=== PATIENT | male | born 1965 | race Caucasian/White ===

== ENCOUNTER 2017-02-08 09:56 | Emergency (ER) | payer MEDICARE, MEDICAID ==
[2017-02-08 10:08] VITALS: BP 144/83
--- NOTE | 2017-02-08 10:58 | UC ---
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[facility] complaint of rash that was noticed last night rash on abdomen that is not itchy used calamine lotion denies fever and chills no new exposures to new foods medicines,detergents or creams - History of Current Complaint Chief Complaint: UCSkin Stated Complaint: SKIN CONCERN Time Seen by Provider: 02/08/17 10:52 Hx Obtained From: Patient - Allergy/Home Medications Allergies/Adverse Reactions: Allergies Allergy/AdvReac Type Severity Reaction Status Date / Time No Known Allergies Allergy Verified 02/08/17 10:07 PMH/Surg Hx/FS Hx/Imm Hx Previously Healthy: Yes Endocrine History: Dyslipidemia Cardiovascular History: Hypertension Psychological History: Depression, Bipolar Disorder, Schizophrenia - Surgical History Surgical History: None - Social History Alcohol Use: None Substance Use Type: None Smoking Status (MU): Never Smoked Tobacco Review of Systems Constitutional: Negative Skin: Rash Eyes: Negative ENT: Negative Respiratory: Negative Cardiovascular: Negative Gastrointestinal: Negative Genitourinary: Negative Motor: Negative Neurovascular: Negative Musculoskeletal: Negative Neurological: Negative Psychological: Negative All Other Systems Reviewed And Are Negative: Yes Physical Exam Triage Information Reviewed: Yes Appearance: Well-Appearing, Well-Nourished, Obese Vital Signs: Initial Vital Signs Temp 98.1 F 02/08/17 10:03 Pulse 76 02/08/17 10:03 Resp 16 02/08/17 10:03 BP 144/83 02/08/17 10:03 Pulse Ox 100 02/08/17 10:03 Vital Signs Reviewed: Yes Eyes: Positive: Conjunctiva Clear ENT: Positive: Pharynx normal, TMs normal Neck: Positive: No Lymphadenopathy Respiratory: Positive: Lungs clear, Normal breath sounds, No respiratory distress, No accessory muscle use Cardiovascular: Positive: RRR, No Murmur, Pulses Normal, Brisk Capillary Refill Abdomen Description: Positive: Nontender, Soft, Distended Bowel Sounds: Positive: Present Musculoskeletal: Positive: No Edema Neurological Exam: Normal Psychological Exam: Normal Skin: Positive: Other - abdomen- three 3x3cm areas of erythema with raised edges and clearish centers Course/Dx - Differential Dx - Multi-Symptom Provider Diagnoses: tinea. elevated blood pressure Discharge - Discharge Plan Condition: Stable Disposition: HOME Prescriptions: Clotrimazole 1% CREAM* [Clotrimazole 1%*] 1 applic TOPICAL BID #1 tube Patient Education Materials: Tinea Corporis (ED) Referrals: Destini Armenta PA [Primary Care Provider] - Additional Instructions: Please start antifungal cream as directed Increase fluids and rest Please review your discharge instructions. If your symptoms do not improve please call your primary care provider or return to urgent care. Your blood pressure is elevated. Please contact your primary care provider within 1 -4 weeks for further evaluation.
== END 2017-02-08 11:14 | disposition home or self-care (01) ==
LOC: UCCORT 09:56
DX: B35.9 Dermatophytosis, unspecified (principal)
CPT/HCPCS: 99212; G0463

== ENCOUNTER 2017-09-12 16:38 | Emergency (ER) | payer MEDICARE, MEDICAID ==
[2017-09-12 17:36] VITALS: BP 199/65
--- NOTE | 2017-09-12 17:54 | UC ---
Skin Complaint HPI - HPI Summary HPI Summary: This is a 51 yo developmentally disabled male who presents with c/o rash that started last night. It is across his abdomen. No itching or pain. No fever. He had a similar rash last winter that improved with a steroid cream. Patient spends most of the day washing dishes and his shirt is soaked. He applies lotion twice daily. - History of Current Complaint Chief Complaint: UCRash Stated Complaint: RASH Pain Intensity: 0 - Allergy/Home Medications Allergies/Adverse Reactions: Allergies Allergy/AdvReac Type Severity Reaction Status Date / Time No Known Allergies Allergy Verified 09/12/17 17:36 Review of Systems Constitutional: Negative Skin: Rash Eyes: Negative ENT: Negative Respiratory: Negative Cardiovascular: Negative Gastrointestinal: Negative Genitourinary: Negative Motor: Negative Neurovascular: Negative Musculoskeletal: Negative Neurological: Negative Psychological: Negative Is Patient Immunocompromised?: No All Other Systems Reviewed And Are Negative: Yes PMH/Surg Hx/FS Hx/Imm Hx Previously Healthy: No - developmental disability Endocrine History: Thyroid Disease - Surgical History Surgical History: None - Family History Known Family History: Positive: None - Social History Alcohol Use: None Substance Use Type: None Smoking Status (MU): Never Smoked Tobacco Physical Exam Triage Information Reviewed: Yes Appearance: Well-Appearing Vital Signs: Initial Vital Signs Temp 97.9 F 09/12/17 17:31 Pulse 76 09/12/17 17:31 Resp 16 09/12/17 17:31 BP 199/65 09/12/17 17:31 Pulse Ox 99 09/12/17 17:31 Vital Signs Reviewed: Yes ENT Exam: Normal Dental Exam: Normal Neck exam: Normal Respiratory Exam: Normal Respiratory: Positive: Chest non-tender, Lungs clear Cardiovascular Exam: Normal Cardiovascular: Positive: RRR, No Murmur Abdominal Exam: Normal Abdomen Description: Positive: Nontender Musculoskeletal Exam: Normal Neurological Exam: Normal Neurological: Positive: Alert Skin: Positive: Other - erythematous rash across abdomen, no excoriation Course/Dx - Course Course Of Treatment: This is a 51 yo male who presents with a rash which appears to be a contact dermatitis. Recommend use of topical corticosteroid. - Differential Diagnoses - Skin Complaint Differential Diagnoses: Contact Dermatitis, Eczema - Diagnoses Provider Diagnoses: 1. Contact dermatitis. 2. Elevated blood pressure reading - noted to be inaccurate by nursing after patient left, no h/o HTN or symptoms Discharge - Discharge Plan Condition: Stable Disposition: HOME Prescriptions: Triamcinolone 0.5% CREAM(NF) [Triamcinolone 0.5% CREAM*] 1 applic TOPICAL BID # 1 tube Patient Education Materials: Contact Dermatitis (ED) Referrals: Destini Armenta PA [Primary Care Provider] - If Needed Additional Instructions: Instructions: 1. Apply steroid cream twice daily 2. Cont lotion application and/or ointment 3. Discontinue steroid cream when rash resolves
== END 2017-09-12 17:52 | disposition home or self-care (01) ==
LOC: UCCORT 16:38
DX: L25.9 Unspecified contact dermatitis, unspecified cause (principal); R03.0 Elevated blood-pressure reading, without diagnosis of hypertension; F81.9 Developmental disorder of scholastic skills, unspecified; E07.9 Disorder of thyroid, unspecified
CPT/HCPCS: 99212; G0463

== ENCOUNTER 2017-11-07 16:13 | Emergency (ER) | payer MEDICARE, MEDICAID ==
[2017-11-07 17:48] VITALS: BP 143/74
--- NOTE | 2017-11-07 18:10 | UC ---
Skin Complaint HPI - HPI Summary HPI Summary: 52 year old male with skin concern. patient has a boil appearing sore on the back of his neck. has been there for a couple of days. he is here with staff from care home. no fever. no discharge. 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 Onset/Duration: Gradual Onset Skin Exposure Onset/Duration: Days Ago Timing: Constant Pain Intensity: 0 Aggravating Factor(s): Nothing Alleviating Factor(s): Nothing Associated Signs & Symptoms: Positive: Negative - Allergy/Home Medications Allergies/Adverse Reactions: Allergies Allergy/AdvReac Type Severity Reaction Status Date / Time No Known Allergies Allergy Verified 11/07/17 17:49 Home Medications: Home Medications Acetaminophen TAB* [Tylenol TAB*] 650 mg PO Q4H PRN 11/07/17 [History Confirmed 11/07/17] Cholecalciferol TAB* [Vitamin D TAB*] 1,000 unit PO DAILY 11/07/17 [History Confirmed 11/07/17] guaiFENesin [Guaifenesin] 400 mg PO Q4H 11/07/17 [History Confirmed 11/07/17] Review of Systems Skin: Other - boil All Other Systems Reviewed And Are Negative: Yes PMH/Surg Hx/FS Hx/Imm Hx Previously Healthy: Yes Endocrine History: Dyslipidemia Psychological History: Bipolar Disorder - Surgical History Surgical History: None - Family History Known Family History: Positive: None - Social History Occupation: Unemployed Alcohol Use: None Substance Use Type: None Smoking Status (MU): Never Smoked Tobacco Physical Exam Triage Information Reviewed: Yes Appearance: Well-Appearing, No Pain Distress, Well-Nourished Vital Signs: Initial Vital Signs Temp 99.1 F 11/07/17 17:44 Pulse 68 11/07/17 17:44 Resp 12 11/07/17 17:44 BP 143/74 11/07/17 17:44 Pulse Ox 97 11/07/17 17:44 Vital Signs Reviewed: Yes Eyes: Positive: Conjunctiva Clear ENT: Positive: Hearing grossly normal Neck: Positive: Supple, Nontender Respiratory: Positive: No respiratory distress Cardiovascular: Positive: RRR Musculoskeletal Exam: Normal Neurological Exam: Normal Psychological Exam: Normal Skin: Positive: Other - round raised red abscess 5x5 mm and with fluctuance present. no streaking. mild tenderness. superficial. Course/Dx - Course Course Of Treatment: cleaned with elcohol. consent and time out done. [id number] g needle in 2 times very superficually approx 1 mm. expressed moderate amount of purulent discharge. cultured it. start doxy at this time. RTO if any concerns covered with band aid patient tolerated procecure well and scant/minimal blood loss - Differential Diagnoses - Skin Complaint Differential Diagnoses: Abscess, Cellulitis - Diagnoses Provider Diagnoses: abscess on posterior neck Discharge - Sign-Out/Discharge Documenting (check all that apply): Discharge - Discharge Plan Condition: Good Disposition: HOME Prescriptions: Doxycycline Hyclate 100 mg PO BID 10 Days #20 tablet Patient Education Materials: Abscess (ED) Referrals: Destini Armenta PA [Primary Care Provider] - 4 Days - Billing Disposition and Condition Condition: GOOD Disposition: HOME Images Head: 1 - abscess
--- NOTE | 2017-11-10 07:17 | UC ---
- Progress Note Progress Note: MRSA neg 2+ staph aureus Pt on doxy, sensitive no change martij 11/10/17 Discharge - Sign-Out/Discharge Documenting (check all that apply): Discharge - Discharge Plan Condition: Good Disposition: HOME Prescriptions: Doxycycline Hyclate 100 mg PO BID 10 Days #20 tablet Patient Education Materials: Abscess (ED) Referrals: Destini Armenta PA [Primary Care Provider] - 4 Days - Billing Disposition and Condition Condition: GOOD Disposition: HOME
== END 2017-11-07 18:37 | disposition home or self-care (01) ==
LOC: UCCORT 16:13
DX: L02.11 Cutaneous abscess of neck (principal)
CPT/HCPCS: 10060; 87070; 87077; 87186; 87205; 87640; 87641; 99212; G0463

== ENCOUNTER 2019-02-28 11:49 | Emergency (ER) | payer MEDICARE, MEDICAID ==
--- OUTSIDE RECORDS SUMMARY | 2019-02-28 12:04 | XMS REPORT | Continuity of Care Document ---
:1965 External Reference #:[id number] Author Name Marilee Soto Care Team Providers Name Role Phone Dwight Parker MD Primary Care Physician Unavailable Payers Date Identification Numbers Payment Provider Subscriber Effective: 1992 Policy Number: [id number] Medicare Kavya Byrd Group Name: Medicare [address] PayID: [id number] [place] [phone] Policy Number: [id number] Medicaid Kavya Byrd Group Name: 2 1 [address] PayID: [id number] [place] [address] Problems Active Problems Provider Date Umbilical hernia Onset: 08/15/2018 Contact dermatitis Onset: 08/15/2018 Anxiety state Onset: 06/27/2011 Hyperlipidemia Onset: 06/27/2011 Hypothyroidism Onset: 06/27/2011 Mixed conductive AND sensorineural hearing loss Onset: 06/27/2011 Mental retardation Onset: 06/27/2011 Vitamin D deficiency Onset: 06/27/2011 Bipolar I disorder Onset: 06/27/2011 Resolved Problems Disorder of sebaceous gland Onset: 06/27/2011 Resolved: 09/23/2017 Chronic hypotension Onset: 06/27/2011 Resolved: 10/17/2018 Family History Date Family Member(s) Observation Comments Father due to [place] () Social History Type Date Description Comments Sex Unknown Marital Status Single Lives With Adult family home [facility] [employer] Ambidextrous ETOH Use Never used alcohol Tobacco Use Start: Unknown Patient has never smoked Recreational Drug Use Never Used Drugs Smoking Status Reviewed: 02/04/19 Patient has never smoked Exercise Type/Frequency Exercises regularly Exercise Type/Frequency Walks 3 times a week Allergies, Adverse Reactions, Alerts Description No Known Drug Allergies Medications Active Medications SIG Qnty Indications Ordering Date Provider Aquaphor elizabeth Quintanilla 09/18/2018 Ointment MD Keith Selsun Blue Dry Scalp once a day 1units Dwight 09/18/2018 MD Keith 1% Shampoo Multi For Him 50+ once a day Dwight 10/13/2015 MD Keith Tablets Levothyroxine Sodium take 1 tablet by 30tabs E03.9 Dwight 10/11/2014 mouth every day MD Keith 112mcg Tablets Pravastatin Sodium take 1 tablet by 90tabs Dwight 10/16/2011 20mg mouth every evening MD Keith Tablets Abilify 1 po qd 90tabs Dwight 08/14/2011 10mg Tablets MD Keith Cymbalta 2 by mouth every 60caps Dwight 08/14/[address] morning MD Keith Part Lithobid 1 po tid Dwight 08/14/2011 300mg Tablets MD Keith ER Prevident 5000 Dwight 08/14/2011 Booster MD Keith 1.1% Paste Acetaminophen 2 tablets by mouth 60tabs Dwight 08/14/2011 325mg prn MD Keith Tablets Guaifenesin 10 milliliters by 473ml Dwight 08/14/2011 100mg/5ML mouth every 4 hours MD Keith Liquid as needed for cough Antacid Liquid 10 milliliters by Dwight 08/14/2011 mouth q 4 hours as MD Keith [phone] needed Suspension Triple Antibiotic as needed Dwight 08/14/2011 MD Keith 3.5-400-5000 Ointment Vitamin D-400 1 by mouth every 30tabs Dwight 08/14/2011 400Unit day MD Keith Tablets Doxycycline Hyclate TK 1 T PO bid Unknown 100mg Tablets History Medications Amoxicillin 1 by mouth twice a 20tabs H66.93 Dwight 01/21/2019 - 875mg day MD Keith 02/04/2019 Tablets Erythromycin apply half inch 3.500gm H10.021 Dwight 01/21/2019 - 5mg/GM ribbon to eyes MD Keith 02/04/2019 Ointment twice a day for 5 days Suprep Bowel Prep Take according to 354ml Uriel Salazar 10/22/2018 - Kit the instructions MD Edouard 02/04/2019 you received the 17.5-3.13-1.6GM/177 afternoon before ML Solution and morning of your procedure. Clotrimazole apply to affected 15units Dwight 12/18/2017 - 1% area twice a day MD Keith 05/15/2018 Cream for 10 days Betamethasone apply to afected 15units Dwight 12/18/2017 - Dipropionate amanda twice a day MD Keith 08/15/2018 0.05% for 5 days Cream Lotrisone apply to affected 30units L30.9 Dwight 12/16/2017 - 1-0.05% area twice a day MD Keith 01/01/2018 Cream for 5-7 days Ciclopirox Olamine apply to affected 30units B35.4 Dwight 02/22/2017 - area twice a day MD Keith 02/22/2017 0.77% Cream to pannus for 7 days Clotrimazole/Betame apply twice a day 30units B35.4 Dwight 02/22/2017 - thasone to affected for MD Keith 03/06/2017 Dipropionate one week 1-0.05% Cream Terbinafine HCL one every day 10tabs B35.4 Dwight 02/22/2017 - MD Keith 04/25/2017 250mg Tablets Ketoconazole apply to affected 60units B35.6 Dwight 06/28/2015 - 2% area twice a day MD Keith 10/13/2015 Cream for one week,then use as necessary Levothyroxine 1 by mouth every 30tabs 244.9 Dwight 09/28/2014 - Sodium soha Parker MD 12/13/2014 100mcg Tablets Levoxyl 1 by mouth every 30tabs Dwight 01/14/2013 - 88mcg soha Parker MD 09/28/2014 Tablets Pravachol one qd 30tabs Dwight 10/16/2011 - 20mg MD Keith 12/04/2011 Tablets Levoxyl ... 1 tablet qd 30tabs Dwight 08/14/2011 - 75mcg MD Keith 01/14/2013 Tablets Nizoral use as directed 4units Dwight 08/14/2011 - 2% Shampoo MD Keith 10/06/2012 Clotrimazole Aminata Ext Aa bid Unknown - 1% 02/22/2017 Cream Immunizations CPT Code Status Date Vaccine Lot # [id number] Given 05/15/2018 Influenza Virus Vaccine, Quadrivalent, Split, Preservative Free 98776 Given 12/16/2017 Tdap - Tetanus/Diptheria/Acellular Pertussis 26927 Given 05/20/2014 Influenza Virus 3Yrs & Over 39680 Given 06/11/2013 Influenza Virus 3Yrs & Over 30646 Given 05/23/2012 Influenza Virus 3Yrs & Over 56870 Given 05/30/2010 Influenza Virus 3Yrs & Over 33455 Given 05/17/2009 Influenza Virus 3Yrs & Over 39163 Given 05/11/2008 Influenza Virus 3Yrs & Over 41690 Given 03/22/2008 Tdap - Tetanus/Diptheria/Acellular Pertussis 00427 Given 06/02/2007 Influenza Virus 3Yrs & Over 38272 Given 07/24/2005 Influenza Virus 3Yrs & Over 52966 Given 04/24/2004 Hepatitis B Dinah Adoles For Intramuscular Use 81916 Given 11/03/2003 Hep B Pediatric/Adolescent 66051 Given 10/05/2003 Hepatitis B Dinah Adoles For Intramuscular Use 91760 Given 10/05/2003 Hepatitis B Dinah Adoles For Intramuscular Use 15799 Given 07/14/2003 Influenza Virus 3Yrs & Over 19447 Given 05/27/2002 Influenza Virus 3Yrs & Over 75850 Given 06/05/2000 Influenza Virus 3Yrs & Over 53041 Given 03/15/1999 Tetanus And Diptheria (Td) For Adult Use Preservative Free 70816 Given 09/18/1994 Flu Vaccine 84455 Given 09/27/1992 Flu Vaccine Vital Signs Date Vital Result Comment 02/25/2019 8:11am Weight 183.06 lb BP Systolic Sitting 110 mmHg BP Diastolic Sitting 50 mmHg 02/04/2019 9:25am Weight 180.38 lb BP Systolic Sitting 108 mmHg BP Diastolic Sitting 70 mmHg 01/21/2019 11:16am Weight 178.31 lb 10/21/2018 9:08am Height 65.25 inches 5'5.25" Weight 240.00 lb Heart Rate 80 /min BP Systolic Sitting 102 mmHg large adult cuff right arm BP Diastolic Sitting 62 mmHg large adult cuff right arm Respiratory Rate 20 /min O2 % BldC Oximetry 96 % at rest on room air BMI (Body Mass Index) 39.6 kg/m2 10/17/2018 11:02am Height 65.25 inches 5'5.25" Weight 181.00 lb Heart Rate 82 /min BP Systolic 132 mmHg BP Diastolic 74 mmHg Respiratory Rate 16 /min O2 % BldC Oximetry 98 % BMI (Body Mass Index) 29.9 kg/m2 09/18/2018 11:07am Weight 183.00 lb BP Systolic 134 mmHg BP Diastolic 76 mmHg 08/15/2018 10:21am Weight 182.00 lb BP Systolic 126 mmHg BP Diastolic 76 mmHg 05/15/2018 10:08am Weight 179.00 lb 12/31/2017 3:26pm Weight 183.00 lb 12/16/2017 4:09pm Weight 184.00 lb BP Systolic 124 mmHg BP Diastolic 70 mmHg 11/13/2017 3:40pm Weight 192.00 lb 10/16/2017 3:31pm Height 65.6 inches Weight 189.00 lb Heart Rate 70 /min BP Systolic 120 mmHg BP Diastolic 70 mmHg Respiratory Rate 12 /min Body Temperature 98.8 F BMI (Body Mass Index) 30.9 kg/m2 2017 3:25pm Height 65 inches Weight 196.00 lb BP Systolic 124 mmHg BP Diastolic 74 mmHg BMI (Body Mass Index) 32.6 kg/m2 07/24/2017 3:00pm Weight 185.00 lb BP Systolic 118 mmHg BP Diastolic 60 mmHg 04/24/2017 3:03pm Weight 186.00 lb BP Systolic 112 mmHg BP Diastolic 60 mmHg 03/06/2017 9:28am Weight 190.00 lb BP Systolic 110 mmHg BP Diastolic 70 mmHg 02/22/2017 9:58am Weight 189.00 lb BP Systolic 108 mmHg BP Diastolic 60 mmHg 01/22/2017 9:01am Weight 188.00 lb 10/15/2016 3:38pm Height 65.25 inches Weight 178.00 lb Heart Rate 84 /min BP Systolic 108 mmHg BP Diastolic 62 mmHg Respiratory Rate 16 /min Body Temperature 9.4 F BMI (Body Mass Index) 29.4 kg/m2 10/10/2016 2:57pm Weight 180.00 lb BP Systolic 126 mmHg BP Diastolic 76 mmHg 08/29/2016 4:02pm Weight 183.00 lb BP Systolic 128 mmHg BP Diastolic 78 mmHg 07/19/2016 2:57pm Weight 187.00 lb 06/19/2016 2:55pm Weight 189.00 lb BP Systolic 122 mmHg BP Diastolic 80 mmHg 05/03/2016 4:00pm Weight 183.00 lb BP Systolic 120 mmHg BP Diastolic 70 mmHg 04/03/2016 1:19pm Weight 183.00 lb BP Systolic 118 mmHg BP Diastolic 70 mmHg 02/16/2016 3:09pm Weight 182.00 lb BP Systolic 110 mmHg BP Diastolic 78 mmHg 01/12/2016 3:21pm Weight 181.00 lb 10/13/2015 3:28pm Height 65.6 inches Weight 180.00 lb Heart Rate 70 /min BP Systolic 124 mmHg BP Diastolic 70 mmHg Respiratory Rate 12 /min Body Temperature 98.8 F BMI (Body Mass Index) 29.4 kg/m2 09/15/2015 3:32pm Weight 187.00 lb BP Systolic 120 mmHg BP Diastolic 76 mmHg 08/15/2015 3:41pm Weight 186.00 lb BP Systolic 118 mmHg BP Diastolic 70 mmHg 07/14/2015 3:10pm Weight 188.00 lb BP Systolic 118 mmHg BP Diastolic 74 mmHg 06/28/2015 9:34am Weight 188.00 lb BP Systolic 112 mmHg BP Diastolic 70 mmHg 06/15/2015 3:17pm Weight 188.00 lb BP Systolic 118 mmHg BP Diastolic 70 mmHg 03/15/2015 8:55am Weight 180.00 lb 12/13/2014 3:00pm Weight 198.00 lb BP Systolic 128 mmHg BP Diastolic 78 mmHg 10/11/2014 3:37pm Height 65 inches Weight 200.00 lb Heart Rate 80 /min BP Systolic 132 mmHg BP Diastolic 80 mmHg Respiratory Rate 14 /min Body Temperature 98.8 F BMI (Body Mass Index) 33.3 kg/m2 09/28/2014 4:24pm Weight 195.00 lb BP Systolic 130 mmHg BP Diastolic 80 mmHg 08/19/2014 3:21pm Weight 193.00 lb BP Systolic 140 mmHg BP Diastolic 90 mmHg 08/19/2014 5:11pm BP Systolic 130 mmHg BP Diastolic 80 mmHg 05/20/2014 3:36pm Weight 178.00 lb BP Systolic 124 mmHg BP Diastolic 70 mmHg 04/07/2014 2:55pm Weight 180.00 lb BP Systolic 124 mmHg BP Diastolic 74 mmHg 01/05/2014 3:23pm Weight 175.00 lb BP Systolic 120 mmHg BP Diastolic 70 mmHg 10/07/2013 3:47pm Height 66 inches Weight 187.00 lb Heart Rate 70 /min BP Systolic 126 mmHg BP Diastolic 78 mmHg Respiratory Rate 14 /min Body Temperature 98.6 F BMI (Body Mass Index) 30.2 kg/m2 08/24/2013 3:47pm Weight 187.00 lb BP Systolic 126 mmHg BP Diastolic 70 mmHg 08/13/2013 3:35pm Weight 187.00 lb BP Systolic 126 mmHg BP Diastolic 78 mmHg 06/11/2013 2:38pm Weight 185.00 lb BP Systolic 118 mmHg BP Diastolic 78 mmHg 03/11/2013 3:41pm Weight 178.00 lb BP Systolic 126 mmHg BP Diastolic 80 mmHg 01/14/2013 3:07pm Weight 174.00 lb BP Systolic 140 mmHg BP Diastolic 80 mmHg 10/06/2012 3:56pm Height 64.6 inches Weight 172.00 lb Heart Rate 70 /min BP Systolic 110 mmHg BP Diastolic 68 mmHg Respiratory Rate 14 /min Body Temperature 98.8 F BMI (Body Mass Index) 29.0 kg/m2 07/15/2012 3:07pm Weight 182.00 lb BP Systolic 110 mmHg BP Diastolic 70 mmHg 06/17/2012 3:07pm Weight 180.00 lb BP Systolic 100 mmHg BP Diastolic 58 mmHg 04/08/2012 3:05pm Height 64 inches Weight 179.00 lb BP Systolic 108 mmHg BP Diastolic 74 mmHg BMI (Body Mass Index) 30.7 kg/m2 01/08/2012 3:44pm Height 64 inches Weight 173.00 lb BP Systolic 100 mmHg BP Diastolic 50 mmHg BMI (Body Mass Index) 29.7 kg/m2 12/04/2011 3:26pm Weight 178.00 lb BP Systolic 100 mmHg BP Diastolic 60 mmHg 10/16/2011 3:14pm Weight 176.00 lb BP Systolic 100 mmHg BP Diastolic 70 mmHg 10/03/2011 3:50pm Height 64 inches Weight 173.00 lb Heart Rate 76 /min BP Systolic 110 mmHg BP Diastolic 78 mmHg Respiratory Rate 12 /min Body Temperature 96.8 F BMI (Body Mass Index) 29.7 kg/m2 08/14/2011 3:00pm Height 64 inches Weight 176.00 lb BP Systolic 120 mmHg BP Diastolic 80 mmHg BMI (Body Mass Index) 30.2 kg/m2 Results Test Date Facility Test Result H/L Range Note Laboratory test 11/11/2018 [facility] Surgical SEE RESULT 1 , [address] [place] [address] [phone] Laboratory test 07/23/2018 [facility] Import Thyroid Stim 2.96 uIU/mL 0.3- 4.2 3 finding Hormone Basic Metabolic 07/23/2018 N2N/CCD Import Anion Gap 6 mEq/L Low 8-16 Panel BUN 14 mg/dL 7-18 BUN/Creat 15.5 ratio Calcium 8.5 mg/dL 8.5-10.1 Carbon Dioxide 26 mmol/L 21-32 Chloride 108 mmol/L High 98-107 Creatinine 0.9 mg/dL 0.6-1.3 Glom Filtration Rate, Estimate >60 mL/min Glucose 91 mg/dL 74-106 If >60 mL/min 4 Potassium 4.0 mmol/L 3.5-5.1 Sodium 140 mmol/L 136-145 CBC Auto Diff 07/23/2018 N2N/CCD Import Bas% 0.6 % 0-1.1 Baso # 0.03 K/uL 0-0.1 Eo% 3.1 % 0-6.6 Eos # 0.16 K/uL 0-0.5 Hematocrit 42.8 % 38-48 Hemoglobin 14.2 gm/dL 12.8-17 Lymph # 1.14 K/uL 1-4 Lymph % 22.0 % 20-42 Mean Cell Volume 96.6 fl High 80-96 Mean Corpuscular HGB 32.1 pg 27-33 Mean Corpuscular HGB Conc 33.2 g/dL 31.7-36 Mean Platelet Volume 11.1 fL High 6.6-10.6 [place] # 0.66 K/uL 0-0.8 [place] % 12.7 % High 0-10 Neut# 3.20 K/uL 1.8-7 Neut% 61.6 % 33-73 Platelet Count 200 K/uL 155-360 Red Blood Count 4.43 M/uL 4.2-5.8 Red Cell Distri Width %CV 11.8 % 11.6-15.8 Red Cell Distri Width SD 40.7 fl 36-51 White Blood Count 5.2 K/uL 3.4-10.5 Lipid Profile (Trig/Chol/HDL) 07/23/2018 N2N/CCD Import Cholesterol 154 mg/ dL 5 HDL Cholesterol 48 mg/dL 6 LDL-Cholesterol 81 mg/dL 7 Triglycerides 126 mg/dL 8 Liver Function Panel 07/23/2018 N2N/CCD Import Alb/Glob 1.0 ratio Albumin 3.7 g/dL 3.4-5 Alkaline Phosphatase 70 U/L 45-117 Bilirubin,Direct 0.1 mg/dL 0-0.2 Bilirubin,Indirect 0.5 mg/dL 0-0.9 Bilirubin,Total 0.6 mg/dL 0.2-1 Globulin 3.6 g/dL 1.9-4.3 SGPT/Alt 38 U/L 12-78 Sgot/Ast 18 U/L 15-37 Total Protein 7.3 g/dL 6.4-8.2 Laboratory test 06/12/2018 N2N/CCD Import TSH (Thyroid 1.92 mcIU/mL 0.34 -5.6 finding Stim Horm) Basic Metabolic 06/12/2018 N2N/CCD Import Anion Gap 8 mmol/L 2-11 Panel BUN/Creatinine Ratio 17.9 1 8-20 Blood Urea Nitrogen 19 mg/dL 6-24 Calcium 9.6 mg/dL 8.6-10.3 Chloride 106 mmol/L 101-111 Co2 Carbon Dioxide 26 mmol/L 22-32 Creatinine 1.06 mg/dL 0.67-1.17 Egfr 89.5 1 9 Egfr Non- 74.0 1 Glucose 107 mg/dL High 70-100 Potassium 4.5 mmol/L 3.5-5 Sodium 140 mmol/L 135-145 CBC Auto Diff 06/12/2018 N2N/CCD Import Abs Basophils 0.1 10^3/uL 0-0.2 Abs Eosinophils 0.2 10^3/uL 0-0.6 Abs Lymphocytes 1.4 10^3/uL 1-4.8 Abs Monocytes 0.9 10^3/uL High 0-0.8 Abs Neutrophils 4.3 10^3/uL 1.5-7.7 Abs Nucleated RBC 0 10^3/uL Basophil % 0.9 % 0-2 Eosinophil % 2.3 % 0-6 Granulocyte % 63.0 % 38-83 Hematocrit 46 % 42-52 Hemoglobin 15.4 g/dL 14-18 Lymphocyte % 20.9 % Low 25-47 Mean Corpuscular HGB Conc 34 g/dL 31-36 Mean Corpuscular Hemoglobin 33 pg High 27-31 Mean Corpuscular Volume 97 fL High 80-94 Mean Platelet Volume 9.7 um3 7.4-10.4 Monocyte % 12.9 % High 0-7 Nucleated Red Blood Cells % 0.1 1 Platelet Count 194 10^3/uL 150-450 Red Blood Count 4.74 10^6/uL 4-5.4 Red Cell Distribution Width 13 % 10.5-15 White Blood Count 6.9 10^3/uL 3.5-10.8 Lipid Profile (Trig/Chol/HDL) 06/12/2018 N2N/CCD Import Cholesterol 195 mg/ dL 10 HDL Cholesterol 53.9 mg/dL 11 LDL Cholesterol 113 mg/dL 12 Triglycerides 140 mg/dL 13 Liver Function Panel 06/12/2018 N2N/CCD Import Albumin 4.6 g/dL 3.2-5.2 Albumin/Globulin Ratio 1.8 1 1-3 Alkaline Phosphatase 67 U/L 34-104 Alt 28 U/L 7-52 Ast 23 U/L 13-39 Direct Bilirubin 0.10 mg/dL 0.03-0.18 Globulin 2.6 g/dL 2-4 Indirect Bilirubin 0.6 mg/dL 0.3-1 Total Bilirubin 0.70 mg/dL 0.2-1 Total Protein 7.2 g/dL 6.4-8.9 Laboratory test 11/15/2017 N2N/CCD Import Prostate Specific 1.19 ng/mL 14, 15 finding Antigen Thyroid Stim Hormone 1.38 uIU/mL 0.3-4.2 Basic Metabolic Panel 11/15/2017 N2N/CCD Import Anion Gap 3 mEq/L Low 8- 16 BUN 17 mg/dL 7-18 BUN/Creat 21.2 ratio Calcium 8.2 mg/dL Low 8.5-10.1 Carbon Dioxide 28 mmol/L 21-32 Chloride 111 mmol/L High 98-107 Creatinine 0.8 mg/dL 0.6-1.3 Glom Filtration Rate, Estimate >60 mL/min Glucose 104 mg/dL 74-106 If >60 mL/min 16 Potassium 4.5 mmol/L 3.5-5.1 Sodium 142 mmol/L 136-145 CBC Auto Diff 11/15/2017 N2N/CCD Import Bas% 0.7 % 0-1.1 Baso # 0.03 K/uL 0-0.1 Eo% 3.1 % 0-6.6 Eos # 0.14 K/uL 0-0.5 Hematocrit 40.7 % 38-48 Hemoglobin 14.0 gm/dL 12.8-17 Lymph # 0.90 K/uL Low 1-4 Lymph % 19.7 % Low 20-42 Mean Cell Volume 95.3 fl 80-96 Mean Corpuscular HGB 32.8 pg 27-33 Mean Corpuscular HGB Conc 34.4 g/dL 31.7-36 Mean Platelet Volume 11.3 fL High 6.6-10.6 [place] # 0.51 K/uL 0-0.8 [place] % 11.2 % High 0-10 Neut# 2.98 K/uL 1.8-7 Neut% 65.3 % 33-73 Platelet Count 181 K/uL 155-360 Red Blood Count 4.27 M/uL 4.2-5.8 Red Cell Distri Width %CV 12.1 % 11.6-15.8 Red Cell Distri Width SD 40.8 fl 36-51 White Blood Count 4.6 K/uL 3.4-10.5 Lipid Profile (Trig/Chol/HDL) 11/15/2017 [facility] Import Cholesterol 145 mg/ dL 17 HDL Cholesterol 52 mg/dL 18 LDL-Cholesterol 75 mg/dL 19 Triglycerides 89 mg/dL 20 Liver Function Panel 11/15/2017 [facility] Import Alb/Glob 1.0 ratio Albumin 3.5 g/dL 3.4-5 Alkaline Phosphatase 70 U/L 45-117 Bilirubin,Direct 0.1 mg/dL 0-0.2 Bilirubin,Indirect 0.3 mg/dL 0-0.9 Bilirubin,Total 0.4 mg/dL 0.2-1 Globulin 3.5 g/dL 1.9-4.3 SGPT/Alt 31 U/L 12-78 Sgot/Ast 18 U/L 15-37 Total Protein 7.0 g/dL 6.4-8.2 Laboratory test 11/07/2017 [facility] Import MRSA/S. aureus See Result 21 , 22 finding Ssti PCR Below Wound/Misc Culture-Gram Stain See Result Below 23 Laboratory test 08/09/2017 [facility] Import Glycohemoglobin (A1c) 5.6 % 4.2-6.3 24, 25 finding Thyroid Stim Hormone 2.28 uIU/mL 0.3-4.2 eAG 114 mg/dL Basic Metabolic Panel 08/09/2017 N2N/CCD Import Anion Gap 6 mEq/L Low 8- 16 BUN 14 mg/dL 7-18 BUN/Creat 15.5 ratio Calcium 8.4 mg/dL Low 8.5-10.1 Carbon Dioxide 27 mmol/L 21-32 Chloride 109 mmol/L High 98-107 Creatinine 0.9 mg/dL 0.6-1.3 Glom Filtration Rate, Estimate >60 mL/min Glucose 90 mg/dL 74-106 If >60 mL/min 26 Potassium 4.0 mmol/L 3.5-5.1 Sodium 142 mmol/L 136-145 CBC Auto Diff 08/09/2017 N2N/CCD Import Bas% 0.5 % 0-1.1 Baso # 0.03 K/uL 0-0.1 Eo% 3.8 % 0-6.6 Eos # 0.23 K/uL 0-0.5 Hematocrit 41.8 % 38-48 Hemoglobin 14.1 gm/dL 12.8-17 Lymph # 1.35 K/uL 1-4 Lymph % 22.3 % 20-42 Mean Cell Volume 96.1 fl High 80-96 Mean Corpuscular HGB 32.4 pg 27-33 Mean Corpuscular HGB Conc 33.7 g/dL 31.7-36 Mean Platelet Volume 11.0 fL High 6.6-10.6 [place] # 0.72 K/uL 0-0.8 [place] % 11.9 % High 0-10 Neut# 3.72 K/uL 1.8-7 Neut% 61.5 % 33-73 Platelet Count 189 K/uL 155-360 Red Blood Count 4.35 M/uL 4.2-5.8 Red Cell Distri Width %CV 11.9 % 11.6-15.8 Red Cell Distri Width SD 40.5 fl 36-51 White Blood Count 6.1 K/uL 3.4-10.5 Lipid Profile (Trig/Chol/HDL) 08/09/2017 N2N/CCD Import Cholesterol 152 mg/ dL 27 HDL Cholesterol 43 mg/dL 28 LDL-Cholesterol 82 mg/dL 29 Triglycerides 134 mg/dL 30 Liver Function Panel 08/09/2017 N2N/CCD Import Alb/Glob 1.0 ratio Albumin 3.6 g/dL 3.4-5 Alkaline Phosphatase 73 U/L 45-117 Bilirubin,Direct < 0.1 mg/dL 0-0.2 Bilirubin,Indirect 0.1 mg/dL 0-0.9 Bilirubin,Total 0.2 mg/dL 0.2-1 Globulin 3.5 g/dL 1.9-4.3 SGPT/Alt 35 U/L 12-78 Sgot/Ast 19 U/L 15-37 Total Protein 7.1 g/dL 6.4-8.2 LDL Cholesterol Profile 09/13/2016 [facility] Import Cholesterol 166 mg/dL 31, 32 HDL Cholesterol 44 mg/dL 33 LDL-Cholesterol 89 mg/dL 34 Triglycerides 163 mg/dL High 35 Laboratory test finding 09/13/2016 [facility] Import Prolactin 3.3 ng/mL 2.5-17.4 Laboratory test finding 09/13/2016 [facility] Import [place] 0.69 mmol/L 0.6-1.2 Thyroid Stim Hormone 1.65 uIU/mL 0.3-4.2 CBC 09/13/2016 [facility] Import Hematocrit 42.9 % 38-48 Hemoglobin 14.5 gm/dL 12.8-17 Mean Cell Volume 95.3 fl 80-96 Mean Corpuscular HGB 32.2 pg 27-33 Mean Corpuscular HGB Conc 33.8 g/dL 31.7-36 Mean Platelet Volume 10.9 fL High 6.6-10.6 Platelet Count 210 K/uL 150-400 Red Blood Count 4.50 M/uL 4.2-5.8 Red Cell Distri Width %CV 11.7 % 11.6-15.8 White Blood Count 6.1 K/uL 3.4-10.5 Comprehensive Metabolic Panel 09/13/2016 [facility] Import Alb/Glob 1.0 ratio Albumin 3.8 g/dL 3.4-5 Alkaline Phosphatase 83 U/L 45-117 Anion Gap 6 mEq/L Low 8-16 BUN 17 mg/dL 7-18 BUN/Creat 18.8 ratio Bilirubin,Total 0.4 mg/dL 0.2-1 Calcium 8.8 mg/dL 8.5-10.1 Carbon Dioxide 29 mmol/L 21-32 Chloride 106 mmol/L 98-107 Creatinine 0.9 mg/dL 0.6-1.3 Globulin 3.9 g/dL 1.9-4.3 Glom Filtration Rate, Estimate >60 mL/min Glucose 105 mg/dL 74-106 If >60 mL/min 36 Potassium 4.2 mmol/L 3.5-5.1 SGPT/Alt 32 U/L 12-78 Sgot/Ast 15 U/L 15-37 Sodium 141 mmol/L 136-145 Total Protein 7.7 g/dL 6.4-8.2 Laboratory test 10/04/2015 N2N/CCD Import TSH Reflex FT4 0.98 uIU/mL 0.36-3.74 37 finding and/or FT3 Basic Metabolic 10/04/2015 N2N/CCD Import Anion Gap 8 mEq/L 8-16 Panel BUN 13 mg/dL 7-18 BUN/Creat 13.0 ratio Calcium 8.4 mg/dL Low 8.5-10.1 Carbon Dioxide 29 mmol/L 21-32 Chloride 106 mmol/L 98-107 Creatinine 1.0 mg/dL 0.6-1.3 Glom Filtration Rate, Estimate >60 mL/min Glucose 92 mg/dL 74-106 If >60 mL/min 38 Potassium 4.1 mmol/L 3.5-5.1 Sodium 143 mmol/L 136-145 LDL Cholesterol Profile 10/04/2015 N2N/CCD Import Cholesterol 158 mg/dL 39 HDL Cholesterol 38 mg/dL Low 40 LDL-Cholesterol 80 mg/dL 41 Triglycerides 200 mg/dL High 42 Liver Function Tests 10/04/2015 N2N/CCD Import Alb/Glob 1.1 ratio Albumin 3.7 g/dL 3.4-5 Alkaline Phosphatase 72 U/L 45-117 Bilirubin,Direct 0.1 mg/dL 0-0.2 Bilirubin,Indirect 0.3 mg/dL 0-0.9 Bilirubin,Total 0.4 mg/dL 0.2-1 Globulin 3.5 g/dL 1.9-4.3 SGPT/Alt 34 U/L 12-78 Sgot/Ast 16 U/L 15-37 Total Protein 7.2 g/dL 6.4-8.2 Laboratory test 06/08/2015 N2N/CCD Import TSH Reflex 2.06 uIU/mL 0.36- 3.74 43 finding FT4 and/or FT3 Basic Metabolic 06/08/2015 N2N/CCD Import Anion Gap 6 mEq/L Low 8-16 Panel BUN 14 mg/dL 7-18 BUN/Creat 17.5 ratio Calcium 8.5 mg/dL 8.5-10.1 Carbon Dioxide 27 mmol/L 21-32 Chloride 107 mmol/L 98-107 Creatinine 0.8 mg/dL 0.6-1.3 Glom Filtration Rate, Estimate >60 mL/min Glucose 103 mg/dL 74-106 If >60 mL/min 44 Potassium 4.1 mmol/L 3.5-5.1 Sodium 140 mmol/L 136-145 LDL Cholesterol Profile 06/08/2015 [facility] Import Cholesterol 171 mg/dL 45 HDL Cholesterol 49 mg/dL 46 LDL-Cholesterol 90 mg/dL 47 Triglycerides 162 mg/dL High 48 Liver Function Tests 06/08/2015 [facility] Import Alb/Glob 1.0 ratio Albumin 3.7 g/dL 3.4-5 Alkaline Phosphatase 81 U/L 45-117 Bilirubin,Direct < 0.1 mg/dL 0-0.2 Bilirubin,Indirect 0.1 mg/dL 0-0.9 Bilirubin,Total 0.2 mg/dL 0.2-1 Globulin 3.6 g/dL 1.9-4.3 SGPT/Alt 47 U/L 12-78 Sgot/Ast 17 U/L 15-37 Total Protein 7.3 g/dL 6.4-8.2 CBC 12/06/2014 [facility] Import Hematocrit 41.3 % 38-48 Hemoglobin 14.2 gm/dL 12.8-17 Mean Cell Volume 96.0 fl 80-96 Mean Corpuscular HGB 33.0 pg 27-33 Mean Corpuscular HGB Conc 34.4 g/dL 31.7-36 Mean Platelet Volume 11.1 fL High 6.6-10.6 Platelet Count 250 K/uL 150-400 Red Blood Count 4.30 M/uL 4.2-5.8 Red Cell Distri Width %CV 11.7 % 11.6-15.8 White Blood Count 7.3 K/uL 3.4-10.5 Laboratory test 12/06/2014 [facility] Import TSH Reflex 2.95 uIU/mL 0.36- 3.74 49 finding FT4 and/or FT3 Comprehensive 12/06/2014 [facility] Import Alb/Glob 1.0 ratio Metabolic Panel Albumin 3.5 g/dL 3.4-5 Alkaline Phosphatase 78 U/L 45-117 Anion Gap 8 mEq/L 8-16 BUN 13 mg/dL 7-18 BUN/Creat 14.4 ratio Bilirubin,Total 0.3 mg/dL 0.2-1 Calcium 8.6 mg/dL 8.5-10.1 Carbon Dioxide 26 mmol/L 21-32 Chloride 107 mmol/L 98-107 Creatinine 0.9 mg/dL 0.6-1.3 Globulin 3.4 g/dL 1.9-4.3 Glom Filtration Rate, Estimate >60 mL/min Glucose 101 mg/dL 74-106 If >60 mL/min 50 Potassium 4.1 mmol/L 3.5-5.1 SGPT/Alt 33 U/L 12-78 Sgot/Ast 18 U/L 15-37 Sodium 141 mmol/L 136-145 Total Protein 6.9 g/dL 6.4-8.2 Basic Metabolic Panel 09/21/2014 [employer] Import Anion Gap 10 mEq/L 8-16 BUN 11 mg/dL 7-18 BUN/Creat 12.2 ratio Calcium 8.5 mg/dL 8.5-10.1 Carbon Dioxide 26 mmol/L 21-32 Chloride 109 mmol/L High 98-107 Creatinine 0.9 mg/dL 0.6-1.3 Glom Filtration Rate, Estimate >60 mL/min Glucose 90 mg/dL 74-106 If >60 mL/min 51 Potassium 4.3 mmol/L 3.5-5.1 Sodium 141 mmol/L 136-145 Liver Function Tests 09/21/2014 [facility] Import Alb/Glob 1.1 ratio Albumin 3.5 g/dL 3.4-5 Alkaline Phosphatase 71 U/L 45-117 Bilirubin,Direct < 0.1 mg/dL 0-0.2 Bilirubin,Indirect 0.2 mg/dL 0-0.9 Bilirubin,Total 0.3 mg/dL 0.2-1 Globulin 3.3 g/dL 1.9-4.3 SGPT/Alt 38 U/L 12-78 Sgot/Ast 21 U/L 15-37 Total Protein 6.8 g/dL 6.4-8.2 LDL Cholesterol Profile 09/21/2014 [facility] Import Cholesterol 161 mg/dL 52 HDL Cholesterol 37 mg/dL 53 LDL-Cholesterol 88 mg/dL 54 Triglycerides 178 mg/dL 55 CBS W/Automated Diff 09/21/2014 N2N/CCD Import Bas% 0.6 % 0.1-1 Baso # 0.03 K/uL Low 0.1-0.2 Eo% 3.1 % 0-5 Eos # 0.15 K/uL 0-0.5 Hematocrit 43.4 % 38-48 Hemoglobin 14.8 gm/dL 12.8-17 Lymph # 1.22 K/uL 1.2-4 Lymph % 24.8 % 17-56 Mean Cell Volume 96.4 fl High 80-96 Mean Corpuscular HGB 32.9 pg 27-33 Mean Corpuscular HGB Conc 34.1 g/dL 31.7-36 Mean Platelet Volume 10.7 fL High 6.6-10.6 [place] # 0.47 K/uL 0-0.6 [place] % 9.6 % 0-10 Neut# 3.04 K/uL 1.8-7 Neut% 61.9 % 33-73 Platelet Count 217 K/uL 150-400 Red Blood Count 4.50 M/uL 4.2-5.8 Red Cell Distri Width %CV 11.9 % 11.6-15.8 Red Cell Distri Width SD 40.9 fl 36-51 White Blood Count 4.9 K/uL 3.4-10.5 Laboratory test finding 09/21/2014 N2N/CCD Import Free T4 0.76 ng/dL 0.76-1.46 Glycohemoglobin (A1c) 5.4 % 4.2-6.3 56 TSH Reflex FT4 and/or FT3 8.42 uIU/mL High 0.36-3.74 57 eAG 108 mg/dL Wound Culture/Sensi 07/19/2014 N2N/CCD Import Wound/Misc (See Note) 58 Culture-Gram Stain Laboratory test 04/10/2014 N2N/CCD Import Glycohemoglobin (A1c) 5.5 % 4.8-6 59 finding eAG 111 mg/dL Laboratory test 01/09/2014 N2N/CCD Import TSH Reflex FT4 3.79 uIU/mL 0.49-4.67 60 finding and/or FT3 Vitamin D,25-Hydroxy 31.3 ng/mL 30-100 61 Basic Metabolic Panel 01/09/2014 N2N/CCD Import Anion Gap 13 mEq/L 8-16 BUN 14 mg/dL 5-23 BUN/Creat 17.5 ratio Calcium 8.9 mg/dL 8.5-10.1 Carbon Dioxide 26 mEq/L 18-29 Chloride 106 mmol/L 98-107 Creatinine 0.8 mg/dL 0.5-1.4 Glom Filtration Rate, Estimate >60 mL/min Glucose 90 mg/dL 76-115 If >60 mL/min 62 Potassium 4.3 mmol/L 3.5-5.1 Sodium 141 mmol/L 136-145 CBS W/Automated Diff 01/09/2014 N2N/CCD Import Bas% 0.5 % 0.1-1 Baso # 0.03 K/uL Low 0.1-0.2 Eo% 2.1 % 0-5 Eos # 0.12 K/uL 0-0.5 Hematocrit 43.8 % 38-48 Hemoglobin 15.1 gm/dL 12.8-17 Lymph # 1.15 K/uL Low 1.2-4 Lymph % 20.0 % 17-56 Mean Cell Volume 95.4 fl 80-96 Mean Corpuscular HGB 32.9 pg 27-33 Mean Corpuscular HGB Conc 34.5 g/dL 31.7-36 Mean Platelet Volume 11.3 fL High 6.6-10.6 [place] # 0.57 K/uL 0-0.6 [place] % 9.9 % 0-10 Neut# 3.87 K/uL 1.8-7 Neut% 67.5 % 33-73 Platelet Count 186 K/uL 150-400 Red Blood Count 4.59 M/uL 4.2-5.8 Red Cell Distri Width %CV 11.8 % 11.6-15.8 Red Cell Distri Width SD 40.4 fl 36-51 White Blood Count 5.7 K/uL 3.4-10.5 LDL Cholesterol Profile 01/09/2014 N2N/CCD Import Cholesterol 159 mg/dL 120-200 HDL Cholesterol 49 mg/dL 29-83 LDL-Cholesterol 79 mg/dL 62-185 Triglycerides 154 mg/dL 16-231 Liver Function Tests 01/09/2014 N2N/CCD Import Alb/Glob 1.2 ratio Albumin 3.9 g/dL 3.5-5 Alkaline Phosphatase 70 U/L 50-136 Bilirubin,Direct < 0.1 mg/dL Low 0.1-0.4 Bilirubin,Indirect 0.3 mg/dL 0-0.9 Bilirubin,Total 0.4 mg/dL 0.2-1.2 Globulin 3.3 g/dL 1.9-4.3 SGPT/Alt 31 U/L 30-65 Sgot/Ast 16 U/L 16-40 Total Protein 7.2 g/dL 6.3-8 LDL Cholesterol Profile 08/14/2013 N2N/[facility] Import Cholesterol 152 mg/dL 120-200 HDL Cholesterol 45 mg/dL 29-83 LDL-Cholesterol 80 mg/dL 62-185 Triglycerides 135 mg/dL 16-231 Laboratory test 08/14/2013 N2N/Zel[facility] Import Bilirubin,Direct < 0.1 mg/dL Low 0.1-0.4 finding Glycohemoglobin (A1c) 5.2 % 4.8-6 63 [place] 0.67 mmol/L 0.6-1.2 TSH Reflex FT4 and/or FT3 3.23 uIU/mL 0.49-4.67 64 eAG 103 mg/dL CBC W/Automated Diff 08/14/2013 N2N/Zelgor Import Bas% 1.0 % 0.1-1 Baso # 0.04 K/uL Low 0.1-0.2 Eo% 3.3 % 0-5 Eos # 0.13 K/uL 0-0.5 Hematocrit 42.6 % 38-48 Hemoglobin 14.3 gm/dL 12.8-17 Lymph # 0.94 K/uL Low 1.2-4 Lymph % 23.8 % 17-56 Mean Cell Volume 96.8 fl High 80-96 Mean Corpuscular HGB 32.5 pg 27-33 Mean Corpuscular HGB Conc 33.6 g/dL 31.7-36 Mean Platelet Volume 10.9 fL High 6.6-10.6 [place] # 0.43 K/uL 0-0.6 [place] % 10.9 % High 0-10 Neut# 2.41 K/uL 1.8-7 Neut% 61.0 % 33-73 Platelet Count 173 K/uL 150-400 Red Blood Count 4.40 M/uL 4.2-5.8 Red Cell Distri Width %CV 11.9 % 11.6-15.8 Red Cell Distri Width SD 41.2 fl 36-51 White Blood Count 4.0 K/uL 3.4-10.5 Comprehensive Metabolic Panel 08/14/2013 N2N/CCD Import Alb/Glob 1.6 ratio Albumin 3.8 g/dL 3.5-5 Alkaline Phosphatase 66 U/L 50-136 Anion Gap 6 mEq/L Low 8-16 BUN 13 mg/dL 5-23 BUN/Creat 16.2 ratio Bilirubin,Total 0.3 mg/dL 0.2-1.2 Calcium 8.7 mg/dL 8.5-10.1 Carbon Dioxide 31 mEq/L High 18-29 Chloride 108 mmol/L High 98-107 Creatinine 0.8 mg/dL 0.5-1.4 Globulin 2.4 g/dL 1.9-4.3 Glom Filtration Rate, Estimate >60 mL/min Glucose 95 mg/dL 76-115 If >60 mL/min 65 Potassium 4.2 mmol/L 3.5-5.1 SGPT/Alt 35 U/L 30-65 Sgot/Ast 19 U/L 16-40 Sodium 141 mmol/L 136-145 Total Protein 6.2 g/dL Low 6.3-8 Laboratory test 02/26/2013 N2N/CCD Import TSH Reflex FT4 3.07 uIU/mL 0.49-4.67 66 finding and/or FT3 Laboratory test 01/07/2013 N2N/CCD Import Free T3 3.06 pg/mL 1.95-4.58 finding Free T4 0.78 ng/dL 0.71-1.85 Glycohemoglobin A1c See Note 67 TSH Reflex FT4 and/or FT3 6.74 uIU/mL High 0.49-4.67 68 Basic Metabolic Panel 01/07/2013 N2N/CCD Import Anion Gap 10 mEq/L 8-16 BUN 17 mg/dL 5-23 BUN/Creat 18.8 ratio Calcium 8.7 mg/dL 8.5-10.1 Carbon Dioxide 28 mEq/L 18-29 Chloride 108 mmol/L High 98-107 Creatinine 0.9 mg/dL 0.5-1.4 Glom Filtration Rate, Estimate >60 mL/min Glucose 88 mg/dL 76-115 If >60 mL/min 69 Potassium 4.1 mmol/L 3.5-5.1 Sodium 142 mmol/L 136-145 CBC W/Automated Diff 01/07/2013 N2N/CCD Import Bas% 0.6 % 0.1-1 Baso # 0.03 K/uL Low 0.1-0.2 Eo% 2.0 % 0-5 Eos # 0.10 K/uL 0-0.5 Hematocrit 42.2 % 38-48 Hemoglobin 14.4 gm/dL 12.8-17 Lymph # 1.06 K/uL Low 1.2-4 Lymph % 20.7 % 17-56 Mean Cell Volume 96.1 fl High 80-96 Mean Corpuscular HGB 32.8 pg 27-33 Mean Corpuscular HGB Conc 34.1 g/dL 31.7-36 Mean Platelet Volume 11.2 fL High 6.6-10.6 [place] # 0.64 K/uL High 0-0.6 [place] % 12.5 % High 0-10 Neut# 3.28 K/uL 1.8-7 Neut% 64.2 % 33-73 Platelet Count 181 K/uL 150-400 Red Blood Count 4.39 M/uL 4.2-5.8 Red Cell Distri Width %CV 11.8 % 11.6-15.8 Red Cell Distri Width SD 40.4 fl 36-51 White Blood Count 5.1 K/uL 3.4-10.5 LDL Cholesterol Profile 01/07/2013 [employer] Import Cholesterol 164 mg/dL 120-200 HDL Cholesterol 46 mg/dL 29-83 LDL-Cholesterol 96 mg/dL 62-185 Triglycerides 112 mg/dL 16-231 Liver Function Tests 01/07/2013 [employer] Import Alb/Glob 1.2 ratio Albumin 3.9 g/dL 3.5-5 Alkaline Phosphatase 70 U/L 50-136 Bilirubin,Direct 0.1 mg/dL 0.1-0.4 Bilirubin,Indirect 0.3 mg/dL 0-0.9 Bilirubin,Total 0.4 mg/dL 0.2-1.2 Globulin 3.2 g/dL 1.9-4.3 SGPT/Alt 31 U/L 30-65 Sgot/Ast 14 U/L Low 16-40 Total Protein 7.1 g/dL 6.3-8 Laboratory test finding 07/02/2012 [employer] Import [place] 0.61 mmol/L 0.6-1.2 TSH Reflex FT4 and/or FT3 1.09 uIU/mL 0.49-4.67 70 CBS W/Automated Diff 07/02/2012 N2N/CCD Import Bas% 0.6 % 0.1-1 Baso # 0.03 K/uL Low 0.1-0.2 Eo% 2.0 % 0-5 Eos # 0.10 K/uL 0-0.5 Hematocrit 42.1 % 38-48 Hemoglobin 14.5 gm/dL 12.8-17 Lymph # 1.03 K/uL Low 1.2-4 Lymph % 20.6 % 17-56 Mean Cell Volume 94.2 fl 80-96 Mean Corpuscular HGB 32.4 pg 27-33 Mean Corpuscular HGB Conc 34.4 g/dL 31.7-36 Mean Platelet Volume 11.0 fL High 6.6-10.6 [place] # 0.55 K/uL 0-0.6 [place] % 11.0 % High 0-10 Neut# 3.30 K/uL 1.8-7 Neut% 65.8 % 33-73 Platelet Count 187 K/uL 150-400 Red Blood Count 4.47 M/uL 4.2-5.8 Red Cell Distri Width %CV 11.9 % 11.6-15.8 Red Cell Distri Width SD 40.1 fl 36-51 White Blood Count 5.0 K/uL 3.4-10.5 Comprehensive Metabolic Panel 07/02/2012 N2N/CCD Import Alb/Glob 1.0 ratio Albumin 3.7 g/dL 3.5-5 Alkaline Phosphatase 57 U/L 50-136 Anion Gap 9 mEq/L 8-16 BUN 14 mg/dL 5-23 BUN/Creat 15.5 ratio Bilirubin,Total 0.4 mg/dL 0.2-1.2 Calcium 8.9 mg/dL 8.5-10.1 Carbon Dioxide 28 mEq/L 18-29 Chloride 107 mmol/L 98-107 Creatinine 0.9 mg/dL 0.5-1.4 Globulin 3.7 g/dL 1.9-4.3 Glom Filtration Rate, Estimate >60 mL/min Glucose 92 mg/dL 76-115 If >60 mL/min 71 Potassium 4.1 mmol/L 3.5-5.1 SGPT/Alt 28 U/L Low 30-65 Sgot/Ast 14 U/L Low 16-40 Sodium 140 mmol/L 136-145 Total Protein 7.4 g/dL 6.3-8 LDL Cholesterol Profile 07/02/2012 N2N/[facility] Import Cholesterol 168 mg/dL 120-200 HDL Cholesterol 43 mg/dL 29-83 LDL-Cholesterol 101 mg/dL 62-185 Triglycerides 120 mg/dL 16-231 Liver Function Tests 07/02/2012 N2N/[facility] Import Alb/Glob 1.0 ratio Albumin 3.7 g/dL 3.5-5 Alkaline Phosphatase 57 U/L 50-136 Bilirubin,Direct < 0.1 mg/dL Low 0.1-0.4 Bilirubin,Indirect 0.3 mg/dL 0-0.9 Bilirubin,Total 0.4 mg/dL 0.2-1.2 Globulin 3.7 g/dL 1.9-4.3 SGPT/Alt 28 U/L Low 30-65 Sgot/Ast 14 U/L Low 16-40 Total Protein 7.4 g/dL 6.3-8 Laboratory test 12/29/2011 [employer] Import Vitamin 31.8 ng/mL 30-100 72 finding D,25-Hydroxy Basic Metabolic 12/29/2011 [employer]/Zel[facility] Import Anion Gap 10 mEq/L 8-16 Panel BUN 14 mg/dL 5-23 BUN/Creat 15.5 ratio Calcium 8.8 mg/dL 8.5-10.1 Carbon Dioxide 28 mEq/L 18-29 Chloride 107 mmol/L 98-107 Creatinine 0.9 mg/dL 0.5-1.4 Glom Filtration Rate, Estimate >60 mL/min Glucose 96 mg/dL 76-115 If >60 mL/min 73 Potassium 4.4 mmol/L 3.5-5.1 Sodium 141 mmol/L 136-145 LDL Cholesterol Profile 12/29/2011 [employer]/[facility]el[facility] Import Cholesterol 165 mg/dL 120-200 HDL Cholesterol 45 mg/dL 29-83 LDL-Cholesterol 97 mg/dL 62-185 Triglycerides 117 mg/dL 16-231 Liver Function Tests 12/29/2011 [employer]/[facility] Import Alb/Glob 1.1 ratio Albumin 3.9 g/dL 3.5-5 Alkaline Phosphatase 56 U/L 50-136 Bilirubin,Direct 0.1 mg/dL 0.1-0.4 Bilirubin,Indirect 0.4 mg/dL 0-0.9 Bilirubin,Total 0.5 mg/dL 0.2-1.2 Globulin 3.4 g/dL 1.9-4.3 SGPT/Alt 25 U/L Low 30-65 Sgot/Ast 16 U/L 16-40 Total Protein 7.3 g/dL 6.3-8 Laboratory test 11/26/2011 N2N/[facility] Import Liver/Kidney 1.1 units 0-20 74 finding Microsomal AB LDL Cholesterol 11/26/2011 N2N/CCD Import Cholesterol 174 mg/dL 120-200 Profile HDL Cholesterol 50 mg/dL 29-83 LDL-Cholesterol 99 mg/dL 62-185 Triglycerides 124 mg/dL 16-231 Laboratory test 10/10/2011 N2N/[facility] Import TSH Reflex FT4 4.08 uIU/mL 0.49-4.67 75 finding and/or FT3 Vitamin D,25-Hydroxy 31.0 ng/mL 30-100 76 Basic Metabolic Panel 10/10/2011 N2N/[facility] Import Anion Gap 11 mEq/L 8-16 BUN 17 mg/dL 5-23 BUN/Creat 18.8 ratio Calcium 8.1 mg/dL Low 8.5-10.1 Carbon Dioxide 26 mEq/L 18-29 Chloride 107 mmol/L 98-107 Creatinine 0.9 mg/dL 0.5-1.4 Glom Filtration Rate, Estimate >60 mL/min Glucose 95 mg/dL 76-115 If >60 mL/min 77 Potassium 4.3 mmol/L 3.5-5.1 Sodium 140 mmol/L 136-145 LDL Cholesterol Profile 10/10/2011 N2N/[facility]el[facility] Import Cholesterol 171 mg/dL 120-200 HDL Cholesterol 45 mg/dL 29-83 LDL-Cholesterol 110 mg/dL 62-185 Triglycerides 79 mg/dL 16-231 Liver Function Tests 10/10/2011 N2N/Zel[facility] Import Alb/Glob 1.2 ratio Albumin 3.7 g/dL 3.5-5 Alkaline Phosphatase 49 U/L Low 50-136 Bilirubin,Direct < 0.1 mg/dL Low 0.1-0.4 Bilirubin,Indirect 0.3 mg/dL 0-0.9 Bilirubin,Total 0.4 mg/dL 0.2-1.2 Globulin 3.1 g/dL 1.9-4.3 SGPT/Alt 25 U/L Low 30-65 Sgot/Ast 11 U/L Low 16-40 Total Protein 6.8 g/dL 6.3-8 1 [id number] 2 SEE RESULT BELOW Name: KAVYA BYRD Gabe : [address]: Uriel Nunn MD Acct: [id number] Unit: [id number] AGE: 53 Location: [facility] Re11/11/18 SEX: M Status: REG REF SPEC: [id number] ANGIE: 11/11/18-[address]: Uriel Nunn MD REQ: [id number] RECD: 11/11/182459 STATUS: SOUT _ ORDERED: LEVEL 4 COMMENTS: [id number] FINAL DIAGNOSIS Colon, ascending, biopsy: -- Tubular adenoma. -- No high grade dysplasia or malignancy. CLINICAL HISTORY Screening/Surveillance for malignancy in asymptomatic patient POST-OPERATIVE DIAGNOSIS Colonoscopy: fair prep; ascending polyp - 5 mm GROSS DESCRIPTION The specimen is received in formalin labeled, Biopsy Ascending Colon Polyp, and consists of a 0.5 x 0.2 x 0.2 cm siddiqi-pink polypoid soft tissue fragment which is submitted entirely in one cassette. Signed by and Reported on: Cheryl Agustin MD 11/12/18 1140 END OF REPORT DEPARTMENT OF PATHOLOGY, [address] [place] [address] Ras Baez M.D. Director [facility] # [id number] 3 E03.9,E66.09,E78.49 4 Note: Persistent reduction for 3 months or more in an eGFR <60 mL/min/1.73 m2 defines CKD. Patients with eGFR values >/=60 mL/min/1.73 m2 may also have CKD if evidence of persistent proteinuria is present. The original MDRD equation for estimated GFR is not valid for patients less than 18 years of age. Additional information may be found at www.kdoqi.org. 5 Reference Guidelines*: Desirable: ........... < 200 mg/dL Borderline High: ..... 200-239 mg/dL High: ................ >=240 mg/dL * The National Cholesterol Education Program (NCEP) 6 Reference Guidelines*: Low HDL: ..... < 40 mg/dL Normal: ..... 40-60 mg/dL Desirable: ... > 60 mg/dL *The National Cholesterol Education Program(NCEP) 7 Reference Guidelines*: Optimal:........... <100 mg/dL Near Optimal....... 100-129 mg/dL Borderline High.... 130-159 mg/dL High............... 160-189 mg/dL Very High.......... >=190 mg/dL * Source: National Cholesterol Education Program (NCEP) 8 Reference Guidelines*: Normal: ............. < 150 mg/dL Borderline High: .... 150-199 mg/dL High: ............... 200-499 mg/dL Very High: .......... > 500 mg/dL * Source: National Cholesterol Education Program (NCEP) 9 Because ethnic data is not always readily available, this report includes an eGFR for both -Americans and non- Americans. The National Kidney Disease Education Program (NKDEP) does not endorse the use of the MDRD equation for patients that are not between the ages of 18 and 70, are , have extremes of body size, muscle mass, or nutritional status, or are non- or non-. According to the National Kidney Foundation, irrespective of diagnosis, the stage of the disease is based on the level of kidney function: Stage Description GFR(mL/min/1.73 m(2)) 1 Kidney damage with normal or decreased GFR 90 2 Kidney damage with mild decrease in GFR 60-89 3 Moderate decrease in GFR 30-59 4 Severe decrease in GFR 15-29 5 Kidney failure <15 (or dialysis) 10 Desirable: <200 Borderline High: 200-239 High: >239 11 Low: <40 Desirable: 40-60 High: >60 12 Desirable: <100 Near Optimal: 100-129 Borderline High: 130-159 High: 160-189 Very High: >189 13 Desirable: <150 Borderline High: 150-199 High: 200-499 Very High: >500 14 E78.4,Z13.228,Z13.1,Z13.220,E03.9,Z00.01 15 THIS ASSAY IS NOT INTENDED A CANCER SCREENING TEST The concentration of PSA in a given specimen, determined with assays from different manufacturers, can vary due to differences in assay methods and reagent specificity. Values obtained from different assay methods cannot be used interchangeably. Method: xiao qu wu youta Chemiluminescent immunoassay. 16 Note: Persistent reduction for 3 months or more in an eGFR <60 mL/min/1.73 m2 defines CKD. Patients with eGFR values >/=60 mL/min/1.73 m2 may also have CKD if evidence of persistent proteinuria is present. The original MDRD equation for estimated GFR is not valid for patients less than 18 years of age. Additional information may be found at www.kdoqi.org. 17 Reference Guidelines*: Desirable: ........... < 200 mg/dL Borderline High: ..... 200-239 mg/dL High: ................ >=240 mg/dL * The National Cholesterol Education Program (NCEP) 18 Reference Guidelines*: Low HDL: ..... < 40 mg/dL Normal: ..... 40-60 mg/dL Desirable: ... > 60 mg/dL *The National Cholesterol Education Program(NCEP) 19 Reference Guidelines*: Optimal:........... <100 mg/dL Near Optimal....... 100-129 mg/dL Borderline High.... 130-159 mg/dL High............... 160-189 mg/dL Very High.......... >=190 mg/dL * Source: National Cholesterol Education Program (NCEP) 20 Reference Guidelines*: Normal: ............. < 150 mg/dL Borderline High: .... 150-199 mg/dL High: ............... 200-499 mg/dL Very High: .......... > 500 mg/dL * Source: National Cholesterol Education Program (NCEP) 21 [id number] 22 SEE RESULT BELOW Name: KAVYA BYRD : [address]: Ron Davis DO Acct: [id number] Unit: [id number] AGE: 52 Location: [facility] Re11/07/17 SEX: M Status: DEP ER SPEC: [id number] ANGIE: 11/07/17-[address] [facility] [address]: Ron Davis DO REQ: [id number] RECD: 11/07/17 STATUS: [place] HERNANDEZ DR: Destini Armenta PA _ SOURCE: NECK SPDESC: ORDERED: MRSA/SA SSTI, Culture Stain COMMENTS: [id number] Verbal to JOANN CONNER. by [id number] at 0922 on 11/08/17. Results read back accurately. Procedure Result Reported Site MRSA/S. aureus SSTI PCR Final 11/08/17- 0042 ML Organism 1 MRSA NEGATIVE Organism 2 S.AUREUS POSITIVE Wound/Misc Gram Stain Final 11/08/17- 0741 ML 4+ Neutrophils 2+ Nucleated Cells 2+ Gram Positive Cocci in Clusters, resembling Staph Wound/Misc Culture Final 11/09/17- 1020 ML Organism 1 STAPHYLOCOCCUS AUREUS Quantity 2+ 1. STAPHYLOCOCCUS AUREUS M.I.C. RX --------- ------ Penicillin >=0.5 R Clindamycin <=0.25 S Erythromycin >=8 R Gentamicin <=0.5 S Linezolid 2 S Oxacillin 0.5 S * Quinupristin/Dalfopristin <=0.25 S Rifampin <=0.5 S CONTINUED ON NEXT PAGE DEPARTMENT OF PATHOLOGY, [address] [place] [address] Ras Baez M.D. Director [facility] # [id number] Patient: KAVYA BYRD [id number] (Continued) Specimen: [id number] Collected: 11/07/17 Received: 11/07/17 (Continued) Procedure Result Reported Site Wound/Misc Culture Final (continued) 11/09/17- 1020 1. STAPHYLOCOCCUS AUREUS (continued) M.I.C. RX --------- ------ Tetracycline <=1 S Doxycycline - Deduced S * Minocycline - Deduced S Trimethoprim/Sulfamethoxazole <=10 S Vancomycin 1 S Imipenem-Deduced S * Ampicillin/Sulbactam-Deduced S Cefazolin-Deduced S * These antibiotics are not available in the [facility] Formulary Contact the Microbiology Department for any additional antibiotic reporting. * ML - Main Lab . END OF REPORT DEPARTMENT OF PATHOLOGY, [address] [place] [address] Ras Baez M.D. Director [facility] # [id number] 23 SEE RESULT BELOW Name: KAVYA BYRD : [address]: Ron Davis DO Acct: [id number] Unit: [id number] AGE: 52 Location: [facility] Re11/07/17 SEX: M Status: DEP ER SPEC: [id number] ANGIE: 11/07/17-[address] [facility] [address]: Ron Davis DO REQ: [id number] RECD: 11/07/17 STATUS: RES OTHR DR: Destini QUINTANA _ SOURCE: NECK SPDESC: ORDERED: MRSA/SA SSTI, Culture Stain COMMENTS: [id number] Procedure Result Reported Site MRSA/S. aureus SSTI PCR PENDING Wound/Misc Gram Stain Preliminary 11/07/17- 2309 ML 4+ Neutrophils 2+ Nucleated Cells 2+ Gram Positive Cocci Wound/Misc Culture PENDING * ML - Main Lab . END OF REPORT DEPARTMENT OF PATHOLOGY, [address] [place] [id number] Ras Baez M.D. Director [facility] # [id number] 24 E03.9,E78.4,F50.9,R79.9 25 Elevated levels of HbA1c suggest the need for more aggressive treatment of glycemia. The [place] [employer] recommends that a primary goal of therapy should be a HbA1c of <7% and that physicians should re-evaluate the treatment regimen in patients with HbA1c values consistently >8%. 26 Note: Persistent reduction for 3 months or more in an eGFR <60 mL/min/1.73 m2 defines CKD. Patients with eGFR values >/=60 mL/min/1.73 m2 may also have CKD if evidence of persistent proteinuria is present. The original MDRD equation for estimated GFR is not valid for patients less than 18 years of age. Additional information may be found at www.kdoqi.org. 27 Reference Guidelines*: Desirable: ........... < 200 mg/dL Borderline High: ..... 200-239 mg/dL High: ................ >=240 mg/dL * The National Cholesterol Education Program (NCEP) 28 Reference Guidelines*: Low HDL: ..... < 40 mg/dL Normal: ..... 40-60 mg/dL Desirable: ... > 60 mg/dL *The National Cholesterol Education Program(NCEP) 29 Reference Guidelines*: Optimal:........... <100 mg/dL Near Optimal....... 100-129 mg/dL Borderline High.... 130-159 mg/dL High............... 160-189 mg/dL Very High.......... >=190 mg/dL * Source: National Cholesterol Education Program (NCEP) 30 Reference Guidelines*: Normal: ............. < 150 mg/dL Borderline High: .... 150-199 mg/dL High: ............... 200-499 mg/dL Very High: .......... > 500 mg/dL * Source: National Cholesterol Education Program (NCEP) 31 F29,Z79.899 32 Reference Guidelines*: Desirable: ........... < 200 mg/dL Borderline High: ..... 200-239 mg/dL High: ................ >=240 mg/dL * The National Cholesterol Education Program (NCEP) 33 Reference Guidelines*: Low HDL: ..... < 40 mg/dL Normal: ..... 40-60 mg/dL Desirable: ... > 60 mg/dL *The National Cholesterol Education Program(NCEP) 34 Reference Guidelines*: Optimal:........... <100 mg/dL Near Optimal....... 100-129 mg/dL Borderline High.... 130-159 mg/dL High............... 160-189 mg/dL Very High.......... >=190 mg/dL * Source: National Cholesterol Education Program (NCEP) 35 Reference Guidelines*: Normal: ............. < 150 mg/dL Borderline High: .... 150-199 mg/dL High: ............... 200-499 mg/dL Very High: .......... > 500 mg/dL * Source: National Cholesterol Education Program (NCEP) 36 Note: Persistent reduction for 3 months or more in an eGFR <60 mL/min/1.73 m2 defines CKD. Patients with eGFR values >/=60 mL/min/1.73 m2 may also have CKD if evidence of persistent proteinuria is present. The original MDRD equation for estimated GFR is not valid for patients less than 18 years of age. Additional information may be found at www.kdoqi.org. 37 QUERY: Reflex add FT3? N QUERY: Reflex add FT4? Y 38 Note: Persistent reduction for 3 months or more in an eGFR <60 mL/min/1.73 m2 defines CKD. Patients with eGFR values >/=60 mL/min/1.73 m2 may also have CKD if evidence of persistent proteinuria is present. The original MDRD equation for estimated GFR is not valid for patients less than 18 years of age. Additional information may be found at www.kdoqi.org. 39 Reference Guidelines*: Desirable: ........... < 200 mg/dL Borderline High: ..... 200-239 mg/dL High: ................ >=240 mg/dL * The National Cholesterol Education Program (NCEP) 40 Reference Guidelines*: Low HDL: ..... < 40 mg/dL Normal: ..... 40-60 mg/dL Desirable: ... > 60 mg/dL *The National Cholesterol Education Program(NCEP) 41 Reference Guidelines*: Optimal:........... <100 mg/dL Near Optimal....... 100-129 mg/dL Borderline High.... 130-159 mg/dL High............... 160-189 mg/dL Very High.......... >=190 mg/dL * Source: National Cholesterol Education Program (NCEP) 42 Reference Guidelines*: Normal: ............. < 150 mg/dL Borderline High: .... 150-199 mg/dL High: ............... 200-499 mg/dL Very High: .......... > 500 mg/dL * Source: National Cholesterol Education Program (NCEP) 43 QUERY: Reflex add FT3? N QUERY: Reflex add FT4? Y 44 Note: Persistent reduction for 3 months or more in an eGFR <60 mL/min/1.73 m2 defines CKD. Patients with eGFR values >/=60 mL/min/1.73 m2 may also have CKD if evidence of persistent proteinuria is present. The original MDRD equation for estimated GFR is not valid for patients less than 18 years of age. Additional information may be found at www.kdoqi.org. 45 Reference Guidelines*: Desirable: ........... < 200 mg/dL Borderline High: ..... 200-239 mg/dL High: ................ >=240 mg/dL * The National Cholesterol Education Program (NCEP) 46 Reference Guidelines*: Low HDL: ..... < 40 mg/dL Normal: ..... 40-60 mg/dL Desirable: ... > 60 mg/dL *The National Cholesterol Education Program(NCEP) 47 Reference Guidelines*: Optimal:........... <100 mg/dL Near Optimal....... 100-129 mg/dL Borderline High.... 130-159 mg/dL High............... 160-189 mg/dL Very High.......... >=190 mg/dL * Source: National Cholesterol Education Program (NCEP) 48 Reference Guidelines*: Normal: ............. < 150 mg/dL Borderline High: .... 150-199 mg/dL High: ............... 200-499 mg/dL Very High: .......... > 500 mg/dL * Source: National Cholesterol Education Program (NCEP) 49 QUERY: Reflex add FT3? Y QUERY: Reflex add FT4? Y 50 Note: Persistent reduction for 3 months or more in an eGFR <60 mL/min/1.73 m2 defines CKD. Patients with eGFR values >/=60 mL/min/1.73 m2 may also have CKD if evidence of persistent proteinuria is present. The original MDRD equation for estimated GFR is not valid for patients less than 18 years of age. Additional information may be found at [email or web address]. 51 Note: Persistent reduction for 3 months or more in an eGFR <60 mL/min/1.73 m2 defines CKD. Patients with eGFR values >/=60 mL/min/1.73 m2 may also have CKD if evidence of persistent proteinuria is present. The original MDRD equation for estimated GFR is not valid for patients less than 18 years of age. Additional information may be found at [email or web address]. 52 Reference Guidelines*: Desirable: ........... < 200 mg/dL Borderline High: ..... 200-239 mg/dL High: ................ >=240 mg/dL * The National Cholesterol Education Program (NCEP) 53 Reference Guidelines*: Low HDL: ..... < 40 mg/dL Normal: ..... 40-60 mg/dL Desirable: ... > 60 mg/dL *The National Cholesterol Education Program(NCEP) 54 Reference Guidelines*: Optimal:........... <100 mg/dL Near Optimal....... 100-129 mg/dL Borderline High.... 130-159 mg/dL High............... 160-189 mg/dL Very High.......... >=190 mg/dL * Source: National Cholesterol Education Program (NCEP) 55 Reference Guidelines*: Normal: ............. < 150 mg/dL Borderline High: .... 150-199 mg/dL High: ............... 200-499 mg/dL Very High: .......... > 500 mg/dL * Source: National Cholesterol Education Program (NCEP) 56 Elevated levels of HbA1c suggest the need for more aggressive treatment of glycemia. The [place] [employer] recommends that a primary goal of therapy should be a HbA1c of <7% and that physicians should re-evaluate the treatment regimen in patients with HbA1c values consistently >8%. 57 QUERY: Reflex add FT3? N QUERY: Reflex add FT4? Y 58 RUN DATE: 07/28/14 [facility] LAB LIVE PAGE 1 RUN TIME: [address] [place] [id number] Specimen Inquiry Name: KAVYA BYRD : [address]: Brenton Lazcano MD Acct: [id number] Unit: [id number] AGE: 48 Location: [facility] Re07/19/14 SEX: M Status: DEP ER SPEC: [id number] ANGIE: 07/19/14-[address] [facility] [address]: Brenton Lazcano MD REQ: [id number] RECD: 07/19/14 STATUS: [place] HERNANDE[facility] DR: Dwight Parker MD _ SOURCE: SCALP SPDESC: ORDERED: Culture Stain Procedure Result Verified Site Wound/Misc Gram Stain Final 07/20/14- 0942 ML 4+ Neutrophils 3+ Epithelial Cells 2+ Nucleated Cells 2+ Gram Positive Cocci Wound/Misc Culture Final 07/28/14- 1540 ML Organism 1 STAPHYLOCOCCUS AUREUS Quantity 2+ 1. STAPHYLOCOCCUS AUREUS M.I.C. RX --------- ------ Penicillin >=0.5 R Clindamycin <=0.25 S Erythromycin >=8 R Gentamicin <=0.5 S Linezolid 2 S Nitrofurantoin <=16 S Oxacillin 0.5 S * Quinupristin/Dalfopristin <=0.25 S Rifampin <=0.5 S Tetracycline <=1 S Doxycycline - Deduced S * Minocycline - Deduced S Trimethoprim/Sulfamethoxazole <=10 S Vancomycin 1 S CONTINUED ON NEXT PAGE * ML=Testing performed at Main Lab DEPARTMENT OF PATHOLOGY, [facility] [employer] [place], [place] [address] Ras Baez M.D. Director [facility] # [id number] RUN DATE: 07/28/14 [facility] LAB LIVE PAGE 2 RUN TIME: [address] [facility] [address] [place], [place] [address] Specimen Inquiry Patient: KAVYA BYRD [id number] (Continued) Specimen: [id number] Collected: 07/19/14-1624 Received: 07/19/14-1838 (Continued) Procedure Result Verified Site Wound/Misc Culture Final (continued) 07/28/14- 1540 1. STAPHYLOCOCCUS AUREUS (continued) M.I.C. RX --------- ------ Imipenem-Deduced S * Ampicillin/Sulbactam-Deduced S Cefazolin-Deduced S * These antibiotics are not available in the [facility] Formulary Contact the Microbiology Department for any additional antibiotic reporting. END OF REPORT * ML=Testing performed at Main Lab DEPARTMENT OF PATHOLOGY, [address] [place] [address] Ras Baez M.D. Director [facility] # [id number] 59 A1c value between 5.7% and 6.4% is considered at increased risk for diabetes. A1c value greater than 6.5 % is considered essentially diagnostic for Type II diabetes. Current guidelines recommend a treatment goal of <7% for diabetic patients. This method will measure glycosylated hemoglobin variants, HbS, HbG, HbH, HbWayne, HbC, HbE, etc. Other hemoglobin- opathies may give incorrect results with this test. 60 QUERY: Reflex add FT3? QUERY: Reflex add FT4? Y 61 Vitamin D deficiency has been defined by the [place] [employer] and an Endocrine Society practice guideline as a level of serum 25-OH vitamin D less than 20 ng/mL (1,2). The Endocrine Society went on to further define vitamin D insufficiency as a level between 21 and 29 ng/mL (2). 1. IOM ([place] of [employer]). 2010. Dietary reference intakes for calcium and D. [place]: The National Academies Press. 2. Cirilo MF, Hayder LAUREANO, Naif AJ, et al. Evaluation, treatment, and prevention of vitamin D deficiency: an Endocrine Society clinical practice guideline. JCEM. 2010; 96(7):1911-30. Performed at: RN - [facility] [address] [id number] Audio Visual Engineer: Amber Jimenez MD, Phone: [phone] 62 Note: Persistent reduction for 3 months or more in an eGFR <60 mL/min/1.73 m2 defines CKD. Patients with eGFR values >/=60 mL/min/1.73 m2 may also have CKD if evidence of persistent proteinuria is present. The original MDRD equation for estimated GFR is not valid for patients less than 18 years of age. Additional information may be found at www.[email or web address]. 63 A1c value between 5.7% and 6.4% is considered at increased risk for diabetes. A1c value greater than 6.5 % is considered essentially diagnostic for Type II diabetes. Current guidelines recommend a treatment goal of <7% for diabetic patients. This method will measure glycosylated hemoglobin variants, HbS, HbG, HbH, HbWayne, HbC, HbE, etc. Other hemoglobin- opathies may give incorrect results with this test. 64 QUERY: Reflex add FT3? QUERY: Reflex add FT4? Y 65 Note: Persistent reduction for 3 months or more in an eGFR <60 mL/min/1.73 m2 defines CKD. Patients with eGFR values >/=60 mL/min/1.73 m2 may also have CKD if evidence of persistent proteinuria is present. The original MDRD equation for estimated GFR is not valid for patients less than 18 years of age. Additional information may be found at www.[email or web address]. 66 QUERY: Reflex add FT3? QUERY: Reflex add FT4? Y 67 PT DECLINED TEST DUE TO ABN 68 QUERY: Reflex add FT3? Y QUERY: Reflex add FT4? Y 69 Note: Persistent reduction for 3 months or more in an eGFR <60 mL/min/1.73 m2 defines CKD. Patients with eGFR values >/=60 mL/min/1.73 m2 may also have CKD if evidence of persistent proteinuria is present. The original MDRD equation for estimated GFR is not valid for patients less than 18 years of age. Additional information may be found at [email or web address]. 70 QUERY: Add FT3 if TSH abnormal? FT3 N QUERY: Add FT4 if TSH Abnormal? FT4 Y 71 Note: Persistent reduction for 3 months or more in an eGFR <60 mL/min/1.73 m2 defines CKD. Patients with eGFR values >/=60 mL/min/1.73 m2 may also have CKD if evidence of persistent proteinuria is present. The original MDRD equation for estimated GFR is not valid for patients less than 18 years of age. Additional information may be found at www.[email or web address]. 72 Vitamin D deficiency has been defined by the [place] [employer] and an Endocrine Society practice guideline as a level of serum 25-OH vitamin D less than 20 ng/mL (1,2). The Endocrine Society went on to further define vitamin D insufficiency as a level between 21 and 29 ng/mL (2). 1. IOM ([place] [employer]). 2010. Dietary reference intakes for calcium and D. [place]: The National Academies Press. 2. Cirilo MF, Hayder [place], Naif AJ, et al. Evaluation, treatment, and prevention of vitamin D deficiency: an Endocrine Society clinical practice guideline. JCEM. 2010; 96(7):1911-30. Performed at: [email or web address] [address] [id number] Audio Visual Engineer: Valentin Cardenas MD, Phone: [phone] 73 Note: Persistent reduction for 3 months or more in an eGFR <60 mL/min/1.73 m2 defines CKD. Patients with eGFR values >/=60 mL/min/1.73 m2 may also have CKD if evidence of persistent proteinuria is present. The original MDRD equation for estimated GFR is not valid for patients less than 18 years of age. Additional information may be found at [email or web address]. 74 Negative 0.0 - 20.0 Equivocal 20.1 - 24.9 Positive >24.9 LKM type 1 antibodies are detected in patients with autoimmune hepatitis type 2 and in up to 8% of patients with chronic HCV infection. Performed at: [facility] [address] [id number] Audio Visual Engineer: Valentin Cardenas MD, Phone: [phone] 75 QUERY: Add FT3 if TSH abnormal? FT3 QUERY: Add FT4 if TSH Abnormal? FT4 Y 76 Vitamin D deficiency has been defined by the [place] [employer] and an Endocrine Society practice guideline as a level of serum 25-OH vitamin D less than 20 ng/mL (1,2). The Endocrine Society went on to further define vitamin D insufficiency as a level between 21 and 29 ng/mL (2). 1. IOM ([place] [employer]). 2010. Dietary reference intakes for calcium and D. [place]: The National Academies Press. 2. Cirilo MF, Hayder [place], Naif AJ, et al. Evaluation, treatment, and prevention of vitamin D deficiency: an Endocrine Society clinical practice guideline. JCEM. 2010; 96(7):1911-30. Effective October 15, 2011, Vitamin D, 25 Hydroxy specimen requirements will change to serum only. Performed at: RN - [facility] [address] [id number] Audio Visual Engineer: Valentin Cardenas MD, Phone: [phone] 77 Note: Persistent reduction for 3 months or more in an eGFR <60 mL/min/1.73 m2 defines CKD. Patients with eGFR values >/=60 mL/min/1.73 m2 may also have CKD if evidence of persistent proteinuria is present. The original MDRD equation for estimated GFR is not valid for patients less than 18 years of age. Additional information may be found at www.[email or web address]. Procedures Date Code Description Status 11/11/2018 [id number] Colonoscopy Completed 10/06/2012 10533 EKG Tracing & Interpretation Completed 10/09/2010 90728 Remove Impacted Cerumen Completed 10/02/2010 89053 Visual funct screen test, automated Completed 10/02/2010 76141 Pure Tone-Air Condition Only Completed 09/29/2009 55166 Screening Vision Test Completed 09/22/2008 07955 Screening Vision Test Completed 09/22/2008 33266 Pure Tone-Air Condition Only Completed 12/18/2007 11340 Remove Impacted Cerumen Completed Encounters Type Date Location Provider Dx Diagnosis Office Visit 02/04/2019 [facility] [place] H65.21 Chronic serous 9:15a otitis media, right ear H10.021 Other mucopurulent conjunctivitis, right eye H10.022 Other mucopurulent conjunctivitis, left eye Office Visit 01/21/2019 11:00a [facility] [place] J06.9 Acute upper Care respiratory infection, unspecified H10.021 Other mucopurulent conjunctivitis, right eye H10.022 Other mucopurulent conjunctivitis, left eye H66.93 Otitis media, unspecified, bilateral Office Visit 10/17/2018 11:00a [facility] Dwight Parker, Z00.01 Encounter for Care general adult medical exam w abnormal findings Z12.11 Encounter for screening for malignant neoplasm of colon Z12.5 Encounter for screening for malignant neoplasm of prostate E03.9 Hypothyroidism, unspecified E78.5 Hyperlipidemia, unspecified F41.9 Anxiety disorder, unspecified F70 Mild intellectual disabilities Office Visit 09/18/2018 [facility] Dwight E03.9 Hypothyroidism, 10:45a Mao Parker MD unspecified E78.5 Hyperlipidemia, unspecified Z12.11 Encounter for screening for malignant neoplasm of colon Plan of Treatment Future Appointment(s):05/28/2019 8:45 am - Dwight Parker MD at [facility]
--- OUTSIDE RECORDS SUMMARY | 2019-02-28 12:05 | XMS REPORT | Continuity of Care Document ---
:1965 External Reference #:[id number] Author Name Arthur Braun Care Team Providers Name Role Phone Dwight Parker MD Primary Care Physician Unavailable Payers Date Identification Numbers Payment Provider Subscriber Effective: 1992 Policy Number: [id number] Medicare Kavya Byrd Group Name: Medicare [address] PayID: [id number] [place] [phone] Policy Number: [id number] Medicaid Kavya Byrd Group Name: 2 1 [address] PayID: [id number] [place] [address] Problems Active Problems Provider Date Umbilical hernia [...] Family Member(s) Observation Comments Father due to [place] () Social History Type Date Description Comments Sex Unknown Marital Status Single Lives With Adult family home [facility] [employer] Ambidextrous ETOH Use Never used alcohol Tobacco Use Start: Unknown Patient has never smoked Recreational Drug Use Never Used Drugs Smoking Status Reviewed: 01/21/19 Patient has never smoked Exercise Type/Frequency Exercises regularly Exercise Type/Frequency Walks 3 times a week Allergies, Adverse Reactions, Alerts Description No Known Drug Allergies Medications Active Medications SIG Qnty Indications Ordering Date Provider Erythromycin apply half inch 3.500gm H10.021 Dwight 01/21/2019 5mg/GM ribbon to eyes MD Keith Ointment twice a day for 5 days Amoxicillin 1 by mouth twice a 20tabs H66.93 Dwight 01/21/2019 875mg day MD Keith Tablets Suprep Bowel Prep Take according to 354ml Uriel CastilloNelly 10/22/2018 Kit the instructions MD Edouard you received the 17.5-3.13-1.6GM/177M afternoon before L Solution and morning of your procedure. Aquaphor a Dwight 09/18/2018 Ointment MD Keith Selsun Blue Dry once a day 1units Dwight 09/18/2018 Scalp MD Keith 1% Shampoo Multi For Him 50+ once a day Dwight 10/13/2015 MD Keith Tablets Levothyroxine Sodium take 1 tablet by 30tabs E03.9 Dwight 10/11/2014 mouth every day MD Keith 112mcg Tablets Pravastatin Sodium take 1 tablet by 90tabs Dwight 10/16/2011 mouth every evening MD Keith 20mg Tablets Vitamin D-400 1 by mouth every 30tabs Dwight 08/14/2011 400Unit day MD Keith Tablets Triple Antibiotic as needed Dwight 08/14/2011 MD Keith 3.5-400-5000 Ointment Antacid Liquid 10 milliliters by 08/14/2011 mouth q 4 hours as MD Keith [phone]/5ML needed Suspension Guaifenesin 10 milliliters by 473ml 08/14/2011 100mg/5ML mouth every 4 hours MD Keith Liquid as needed for cough Acetaminophen 2 tablets by mouth 60tabs Dwight 08/14/2011 325mg prn MD Keith Tablets Prevident 5000 Dwight 08/14/2011 Booster MD Keith 1.1% Paste Lithobid 1 po tid Dwight 08/14/2011 300mg MD Keith Tablets ER Cymbalta 2 by mouth every 60caps 08/14/[address] dede Parker MD Part Abilify 1 po qd 90tabs Dwight 08/14/2011 10mg Tablets MD Keith Doxycycline Hyclate TK 1 T PO bid Unknown 100mg Tablets History Medications Clotrimazole apply to 15units Dwight Parker 12/18/2017 - 1% Cream affected area 05/15/2018 twice a day for 10 days Betamethasone apply to afected 15units Dwight Parker 12/18/2017 - Dipropionate amanda twice a day 08/15/2018 0.05% for 5 days Cream Lotrisone apply to 30units L30.9 Dwight Parker 12/16/2017 - 1-0.05% affected area 01/01/2018 Cream twice a day for 5-7 days Terbinafine HCL one every day 10tabs B35.4 Dwight Parker 02/22/2017 - 250mg 04/25/2017 Tablets Clotrimazole/Betamet apply twice a 30units B35.4 Dwight Parker 02/22 - hasone Dipropionate day to affected MD 03/06/2017 for one week 1-0.05% Cream Ciclopirox Olamine apply to 30units B35.4 Dwight Parker 02/22/2017 - affected area 02/22/2017 0.77% Cream twice a day to pannus for 7 days Ketoconazole apply to 60units B35.6 Dwight Parker 06/28/2015 - 2% Cream affected area 10/13/2015 twice a day for one week,then use as necessary Levothyroxine Sodium 1 by mouth every 30tabs 244.9 Dwight Parker - day 12/13/2014 100mcg Tablets Levoxyl 1 by mouth every 30tabs Dwight Parker 01/14/2013 - 88mcg Tablets day 09/28/2014 Pravachol one qd 30tabs Dwight Parker 10/16/2011 - 20mg 12/04/2011 Tablets Levoxyl ... 1 tablet 30tabs Dwight Parker 08/14/2011 - 75mcg Tablets qd 01/14/2013 Nizoral use as directed 4units Dwight Parker 08/14/2011 - 2% Shampoo 10/06/2012 Clotrimazole Aminata Ext Aa bid Unknown - 1% Cream 02/22/2017 Immunizations CPT Code Status Date Vaccine Lot # [id number] Given 05/15/2018 Influenza Virus Vaccine, Quadrivalent, Split, Preservative Free 23946 Given 12/16/2017 Tdap - Tetanus/Diptheria/Acellular Pertussis 87492 Given 05/20/2014 Influenza Virus 3Yrs & Over 27755 Given 06/11/2013 Influenza Virus 3Yrs & Over 47510 Given 05/23/2012 Influenza Virus 3Yrs & Over 74808 Given 05/30/2010 Influenza Virus 3Yrs & Over 71074 Given 05/17/2009 Influenza Virus 3Yrs & Over 62437 Given 05/11/2008 Influenza Virus 3Yrs & Over 54679 Given 03/22/2008 Tdap - Tetanus/Diptheria/Acellular Pertussis 61651 Given 06/02/2007 Influenza Virus 3Yrs & Over 86150 Given 07/24/2005 Influenza Virus 3Yrs & Over 19847 Given 04/24/2004 Hepatitis B Dinah Adoles For Intramuscular Use 85490 Given 11/03/2003 Hep B Pediatric/Adolescent 39100 Given 10/05/2003 Hepatitis B Dinah Adoles For Intramuscular Use 93876 Given 10/05/2003 Hepatitis B Dinah Adoles For Intramuscular Use 22556 Given 07/14/2003 Influenza Virus 3Yrs & Over 57994 Given 05/27/2002 Influenza Virus 3Yrs & Over 39869 Given 06/05/2000 Influenza Virus 3Yrs & Over 41436 Given 03/15/1999 Tetanus And Diptheria (Td) For Adult Use Preservative Free 92051 Given 09/18/1994 Flu Vaccine 46488 Given 09/27/1992 Flu Vaccine Vital Signs Date Vital Result Comment 02/04/2019 9:25am Weight 180.38 lb BP Systolic [...] Result H/L Range Note Laboratory test 11/11/2018 [facility] Surgical SEE RESULT 1 , [address] [place] [address] [phone] Laboratory test 07/23/2018 N2N/CCD Import Thyroid Stim [...] Mean Platelet Volume 11.1 fL High 6.6-10.6 [place] # 0.66 K/uL 0-0.8 [place] % 12.7 % High 0-10 Neut# 3.20 [...] Mean Platelet Volume 11.3 fL High 6.6-10.6 [place] # 0.51 K/uL 0-0.8 [place] % 11.2 % High 0-10 Neut# 2.98 K/uL 1.8-7 Neut% 65.3 % 33-73 Platelet Count 181 K/uL 155-360 Red Blood Count 4.27 M/uL 4.2-5.8 Red Cell Distri Width %CV 12.1 % 11.6-15.8 Red Cell Distri Width SD 40.8 fl 36-51 White Blood Count 4.6 K/uL 3.4-10.5 Lipid Profile (Trig/Chol/HDL) 11/15/2017 [facility] Import Cholesterol 145 mg/ dL 17 HDL Cholesterol 52 mg/dL 18 LDL-Cholesterol 75 mg/dL 19 Triglycerides 89 mg/dL 20 Liver Function Panel 11/15/2017 N2N/[facility] Import Alb/Glob 1.0 ratio Albumin 3.5 g/dL 3.4-5 Alkaline Phosphatase 70 U/L 45-117 Bilirubin,Direct 0.1 mg/dL 0-0.2 Bilirubin,Indirect 0.3 mg/dL 0-0.9 Bilirubin,Total 0.4 mg/dL 0.2-1 Globulin 3.5 g/dL 1.9-4.3 SGPT/Alt 31 U/L 12-78 Sgot/Ast 18 U/L 15-37 Total Protein 7.0 g/dL 6.4-8.2 Laboratory test 11/07/2017 [facility] Import MRSA/S. aureus See Result 21 , 22 finding Ssti PCR Below Wound/Misc Culture-Gram Stain See Result Below 23 Laboratory test 08/09/2017 N2N/CCD Import Glycohemoglobin (A1c) 5.6 % 4.2-6.3 24, [...] 142 mmol/L 136-145 CBC Auto Diff 08/09/2017 N2N/[facility] Import Bas% 0.5 % 0-1.1 Baso # [...] Mean Platelet Volume 11.0 fL High 6.6-10.6 [place] # 0.72 K/uL 0-0.8 [place] % 11.9 % High 0-10 Neut# 3.72 K/uL 1.8-7 Neut% 61.5 % 33-73 Platelet Count 189 K/uL 155-360 Red Blood Count 4.35 M/uL 4.2-5.8 Red Cell Distri Width %CV 11.9 % 11.6-15.8 Red Cell Distri Width SD 40.5 fl 36-51 White Blood Count 6.1 K/uL 3.4-10.5 Lipid Profile (Trig/Chol/HDL) 08/09/2017 N2N/[facility] Import Cholesterol 152 mg/ dL 27 HDL Cholesterol 43 mg/dL 28 LDL-Cholesterol 82 mg/dL 29 Triglycerides 134 mg/dL 30 Liver Function Panel 08/09/2017 N2N/[facility] Import Alb/Glob 1.0 ratio Albumin 3.6 g/dL 3.4-5 Alkaline Phosphatase 73 U/L 45-117 Bilirubin,Direct < 0.1 mg/dL 0-0.2 Bilirubin,Indirect 0.1 mg/dL 0-0.9 Bilirubin,Total 0.2 mg/dL 0.2-1 Globulin 3.5 g/dL 1.9-4.3 SGPT/Alt 35 U/L 12-78 Sgot/Ast 19 U/L 15-37 Total Protein 7.1 g/dL 6.4-8.2 LDL Cholesterol Profile 09/13/2016 [employer] Import Cholesterol 166 mg/dL 31, 32 HDL Cholesterol 44 mg/dL 33 LDL-Cholesterol 89 mg/dL 34 Triglycerides 163 mg/dL High 35 Laboratory test finding 09/13/2016/[facility] Import Prolactin 3.3 ng/mL 2.5-17.4 Laboratory test finding 09/13/2016 [employer] Import Aptos 0.69 mmol/L 0.6-1.2 Thyroid Stim Hormone 1.65 uIU/mL 0.3-4.2 CBC 09/13/2016[employer] [facility] Import Hematocrit 42.9 % 38-48 Hemoglobin 14.5 [...] 6.1 K/uL 3.4-10.5 Comprehensive Metabolic Panel 09/13/2016 [employer] Import Alb/Glob 1.0 ratio Albumin 3.8 g/dL [...] 140 mmol/L 136-145 LDL Cholesterol Profile 06/08/2015 [facility] Import Cholesterol 171 mg/dL 45 HDL Cholesterol 49 mg/dL 46 LDL-Cholesterol 90 mg/dL 47 Triglycerides 162 mg/dL High 48 Liver Function Tests 06/08/2015 [facility] Import Alb/Glob 1.0 ratio Albumin 3.7 g/dL 3.4-5 Alkaline Phosphatase 81 U/L 45-117 Bilirubin,Direct < 0.1 mg/dL 0-0.2 Bilirubin,Indirect 0.1 mg/dL 0-0.9 Bilirubin,Total 0.2 mg/dL 0.2-1 Globulin 3.6 g/dL 1.9-4.3 SGPT/Alt 47 U/L 12-78 Sgot/Ast 17 U/L 15-37 Total Protein 7.3 g/dL 6.4-8.2 CBC 12/06/2014 [facility] Import Hematocrit 41.3 % 38-48 Hemoglobin 14.2 gm/dL 12.8-17 Mean Cell Volume 96.0 fl 80-96 Mean Corpuscular HGB 33.0 pg 27-33 Mean Corpuscular HGB Conc 34.4 g/dL 31.7-36 Mean Platelet Volume 11.1 fL High 6.6-10.6 Platelet Count 250 K/uL 150-400 Red Blood Count 4.30 M/uL 4.2-5.8 Red Cell Distri Width %CV 11.7 % 11.6-15.8 White Blood Count 7.3 K/uL 3.4-10.5 Laboratory test 12/06/2014 [facility] Import TSH Reflex 2.95 uIU/mL 0.36- 3.74 49 finding FT4 and/or FT3 Comprehensive 12/06/2014 [facility] Import Alb/Glob 1.0 ratio Metabolic Panel Albumin [...] 6.9 g/dL 6.4-8.2 Basic Metabolic Panel 09/21/2014 N[facility]N/[facility] Import Anion Gap 10 mEq/L 8-16 BUN 11 mg/dL 7-18 BUN/Creat 12.2 ratio Calcium 8.5 mg/dL 8.5-10.1 Carbon Dioxide 26 mmol/L 21-32 Chloride 109 mmol/L High 98-107 Creatinine 0.9 mg/dL 0.6-1.3 Glom Filtration Rate, Estimate >60 mL/min Glucose 90 mg/dL 74-106 If >60 mL/min 51 Potassium 4.3 mmol/L 3.5-5.1 Sodium 141 mmol/L 136-145 Liver Function Tests 09/21/2014 [facility]2N/[facility] Import Alb/Glob 1.1 ratio Albumin 3.5 g/dL 3.4-5 Alkaline Phosphatase 71 U/L 45-117 Bilirubin,Direct < 0.1 mg/dL 0-0.2 Bilirubin,Indirect 0.2 mg/dL 0-0.9 Bilirubin,Total 0.3 mg/dL 0.2-1 Globulin 3.3 g/dL 1.9-4.3 SGPT/Alt 38 U/L 12-78 Sgot/Ast 21 U/L 15-37 Total Protein 6.8 g/dL 6.4-8.2 LDL Cholesterol Profile 09/21/2014 N2N/CCD Import Cholesterol 161 mg/dL 52 HDL Cholesterol [...] Mean Platelet Volume 10.7 fL High 6.6-10.6 [place] # 0.47 K/uL 0-0.6 [place] % 9.6 % 0-10 Neut# 3.04 K/uL [...] 141 mmol/L 136-145 CBS W/Automated Diff 01/09/2014 N2N/[facility] Import Bas% 0.5 % 0.1-1 Baso # [...] Mean Platelet Volume 11.3 fL High 6.6-10.6 [place] # 0.57 K/uL 0-0.6 [place] % 9.9 % 0-10 Neut# 3.87 K/uL 1.8-7 Neut% 67.5 % 33-73 Platelet Count 186 K/uL 150-400 Red Blood Count 4.59 M/uL 4.2-5.8 Red Cell Distri Width %CV 11.8 % 11.6-15.8 Red Cell Distri Width SD 40.4 fl 36-51 White Blood Count 5.7 K/uL 3.4-10.5 LDL Cholesterol Profile 01/09/2014 [facility] Import Cholesterol 159 mg/dL 120-200 HDL Cholesterol 49 mg/dL 29-83 LDL-Cholesterol 79 mg/dL 62-185 Triglycerides 154 mg/dL 16-231 Liver Function Tests 01/09/2014 N2N/[facility] Import Alb/Glob 1.2 ratio Albumin 3.9 g/dL 3.5-5 Alkaline Phosphatase 70 U/L 50-136 Bilirubin,Direct < 0.1 mg/dL Low 0.1-0.4 Bilirubin,Indirect 0.3 mg/dL 0-0.9 Bilirubin,Total 0.4 mg/dL 0.2-1.2 Globulin 3.3 g/dL 1.9-4.3 SGPT/Alt 31 U/L 30-65 Sgot/Ast 16 U/L 16-40 Total Protein 7.2 g/dL 6.3-8 LDL Cholesterol Profile 08/14/2013 N2N/CCD Import Cholesterol 152 mg/dL 120-200 HDL Cholesterol 45 mg/dL 29-83 LDL-Cholesterol 80 mg/dL 62-185 Triglycerides 135 mg/dL 16-231 Laboratory test 08/14/2013 N2N/CCD Import Bilirubin,Direct < 0.1 mg/dL Low 0.1-0.4 finding Glycohemoglobin (A1c) 5.2 % 4.8-6 63 [place] 0.67 mmol/L 0.6-1.2 TSH Reflex FT4 and/or FT3 3.23 uIU/mL 0.49-4.67 64 eAG 103 mg/dL CBC W/Automated Diff 08/14/2013 [facility] Import Bas% 1.0 % 0.1-1 Baso # [...] Mean Platelet Volume 10.9 fL High 6.6-10.6 [place] # 0.43 K/uL 0-0.6 [place] % 10.9 % High 0-10 Neut# 2.41 K/uL 1.8-7 Neut% 61.0 % 33-73 Platelet Count 173 K/uL 150-400 Red Blood Count 4.40 M/uL 4.2-5.8 Red Cell Distri Width %CV 11.9 % 11.6-15.8 Red Cell Distri Width SD 41.2 fl 36-51 White Blood Count 4.0 K/uL 3.4-10.5 Comprehensive Metabolic Panel 08/14/2013 [facility]2N/[facility] Import Alb/Glob 1.6 ratio Albumin 3.8 g/dL [...] Mean Platelet Volume 11.2 fL High 6.6-10.6 [place] # 0.64 K/uL High 0-0.6 [place] % 12.5 % High 0-10 Neut# 3.28 K/uL 1.8-7 Neut% 64.2 % 33-73 Platelet Count 181 K/uL 150-400 Red Blood Count 4.39 M/uL 4.2-5.8 Red Cell Distri Width %CV 11.8 % 11.6-15.8 Red Cell Distri Width SD 40.4 fl 36-51 White Blood Count 5.1 K/uL 3.4-10.5 LDL Cholesterol Profile 01/07/2013 [facility]2N/[facility] Import Cholesterol 164 mg/dL 120-200 HDL Cholesterol 46 mg/dL 29-83 LDL-Cholesterol 96 mg/dL 62-185 Triglycerides 112 mg/dL 16-231 Liver Function Tests 01/07/2013 N2N/[facility] Import Alb/Glob 1.2 ratio Albumin 3.9 g/dL 3.5-5 Alkaline Phosphatase 70 U/L 50-136 Bilirubin,Direct 0.1 mg/dL 0.1-0.4 Bilirubin,Indirect 0.3 mg/dL 0-0.9 Bilirubin,Total 0.4 mg/dL 0.2-1.2 Globulin 3.2 g/dL 1.9-4.3 SGPT/Alt 31 U/L 30-65 Sgot/Ast 14 U/L Low 16-40 Total Protein 7.1 g/dL 6.3-8 Laboratory test finding 07/02/2012 [facility]2N/[facility] Import [place] 0.61 mmol/L 0.6-1.2 TSH Reflex FT4 and/or FT3 1.09 uIU/mL 0.49-4.67 70 CBS W/Automated Diff 07/02/2012 [facility]N/[facility] Import Bas% 0.6 % 0.1-1 Baso # [...] Mean Platelet Volume 11.0 fL High 6.6-10.6 [place] # 0.55 K/uL 0-0.6 [place] % 11.0 % High 0-10 Neut# 3.30 [...] 7.4 g/dL 6.3-8 LDL Cholesterol Profile 07/02/2012 N2N/CCD Import Cholesterol 168 mg/dL 120-200 HDL Cholesterol 43 mg/dL 29-83 LDL-Cholesterol 101 mg/dL 62-185 Triglycerides 120 mg/dL 16-231 Liver Function Tests 07/02/2012 [employer] Import Alb/Glob 1.0 ratio Albumin 3.7 g/dL 3.5-5 Alkaline Phosphatase 57 U/L 50-136 Bilirubin,Direct < 0.1 mg/dL Low 0.1-0.4 Bilirubin,Indirect 0.3 mg/dL 0-0.9 Bilirubin,Total 0.4 mg/dL 0.2-1.2 Globulin 3.7 g/dL 1.9-4.3 SGPT/Alt 28 U/L Low 30-65 Sgot/Ast 14 U/L Low 16-40 Total Protein 7.4 g/dL 6.3-8 Laboratory test 12/29/2011 [facility] Import Vitamin 31.8 ng/mL 30-100 72 finding D,25-Hydroxy Basic Metabolic 12/29/2011 [facility] Import Anion Gap 10 mEq/L 8-16 Panel BUN 14 mg/dL 5-23 BUN/Creat 15.5 ratio Calcium 8.8 mg/dL 8.5-10.1 Carbon Dioxide 28 mEq/L 18-29 Chloride 107 mmol/L 98-107 Creatinine 0.9 mg/dL 0.5-1.4 Glom Filtration Rate, Estimate >60 mL/min Glucose 96 mg/dL 76-115 If >60 mL/min 73 Potassium 4.4 mmol/L 3.5-5.1 Sodium 141 mmol/L 136-145 LDL Cholesterol Profile 12/29/2011 [employer] Import Cholesterol 165 mg/dL 120-200 HDL Cholesterol 45 mg/dL 29-83 LDL-Cholesterol 97 mg/dL 62-185 Triglycerides 117 mg/dL 16-231 Liver Function Tests 12/29/2011 [employer] Import Alb/Glob 1.1 ratio Albumin 3.9 g/dL 3.5-5 Alkaline Phosphatase 56 U/L 50-136 Bilirubin,Direct 0.1 mg/dL 0.1-0.4 Bilirubin,Indirect 0.4 mg/dL 0-0.9 Bilirubin,Total 0.5 mg/dL 0.2-1.2 Globulin 3.4 g/dL 1.9-4.3 SGPT/Alt 25 U/L Low 30-65 Sgot/Ast 16 U/L 16-40 Total Protein 7.3 g/dL 6.3-8 Laboratory test 11/26/2011 N2N/CCD Import Liver/Kidney 1.1 units 0-20 74 finding Microsomal AB LDL Cholesterol 11/26/2011 N2N/CCD Import Cholesterol 174 mg/dL 120-200 Profile HDL Cholesterol 50 mg/dL -83 LDL-Cholesterol 99 mg/dL 62-185 Triglycerides 124 mg/dL 16-231 Laboratory test 10/10/2011 N2N/CCD Import TSH Reflex FT4 4.08 uIU/mL 0.49-4.67 75 finding and/or FT3 Vitamin D,25-Hydroxy 31.0 ng/mL 30-100 76 Basic Metabolic Panel 10/10/2011 N2N/CCD Import Anion Gap 11 mEq/L 8-16 BUN 17 mg/dL 5-23 BUN/Creat 18.8 ratio Calcium 8.1 mg/dL Low 8.5-10.1 Carbon Dioxide 26 mEq/L 18-29 Chloride 107 mmol/L 98-107 Creatinine 0.9 mg/dL 0.5-1.4 Glom Filtration Rate, Estimate >60 mL/min Glucose 95 mg/dL 76-115 If >60 mL/min 77 Potassium 4.3 mmol/L 3.5-5.1 Sodium 140 mmol/L 136-145 LDL Cholesterol Profile 10/10/2011 N2N/CCD Import Cholesterol 171 mg/dL 120-200 HDL Cholesterol 45 mg/dL 83 LDL-Cholesterol 110 mg/dL 62-185 Triglycerides 79 mg/dL 16-231 Liver Function Tests 10/10/2011 N2N/CCD Import Alb/Glob 1.2 ratio Albumin 3.7 g/dL 3.5-5 Alkaline Phosphatase 49 U/L Low 50-136 Bilirubin,Direct < 0.1 mg/dL Low 0.1-0.4 Bilirubin,Indirect 0.3 mg/dL 0-0.9 Bilirubin,Total 0.4 mg/dL 0.2-1.2 Globulin 3.1 g/dL 1.9-4.3 SGPT/Alt 25 U/L Low 30-65 Sgot/Ast 11 U/L Low 16-40 Total Protein 6.8 g/dL 6.3-8 1 [id number] 2 SEE RESULT BELOW Name: KAVYA BYRD : [address]: Uriel Nunn MD Acct: [id number] Unit: [id number] AGE: 53 Location: [facility] Re11/11/18 SEX: M Status: REG REF SPEC: [id number] ANGIE: 11/11/18-[address] [facility] [address]: Uriel Nunn MD REQ: [id number] RECD: 11/11/18548 STATUS: SOUT _ ORDERED: LEVEL 4 COMMENTS: [id number] FINAL DIAGNOSIS Colon, ascending, biopsy: -- Tubular [...] 1140 END OF REPORT DEPARTMENT OF PATHOLOGY, [address] [place] [address] Ras Baez M.D. Director [facility] # [id number] 3 E03.9,E66.09,E78.81 4 Note: Persistent reduction for 3 months [...] assay methods cannot be used interchangeably. Method: Siemens Bookya Boylston Chemiluminescent immunoassay. 16 Note: Persistent reduction for [...] Source: National Cholesterol Education Program (NCEP) 21 [id number] 22 SEE RESULT BELOW Name: KAVYA BYRD : [address]: Ron Davis DO Acct: [id number] Unit: [id number] AGE: 52 Location: [facility] Re11/07/17 SEX: M Status: DEP ER SPEC: [id number] ANGIE: 11/07/17-[address] [facility] [address]: Ron Davis DO REQ: [id number] RECD: 11/07/17 STATUS: [facility] DR: Destini Armenta PA _ SOURCE: NECK SPDESC: ORDERED: MRSA/SA SSTI, Culture Stain COMMENTS: [id number] Verbal to JOANN CONNER. by [id number] at 0922 on 11/08/17. Results read back [...] CONTINUED ON NEXT PAGE DEPARTMENT OF PATHOLOGY, [address] [place] [address] Ras Baez M.D. Director [facility] # [id number] Patient: KAVYA BYRD [id number] (Continued) Specimen: [id number] Collected: 11/07/17 Received: 11/07/17 (Continued) Procedure Result Reported Site Wound/Misc Culture Final (continued) 11/09/17- 1020 1. STAPHYLOCOCCUS AUREUS (continued) M.I.C. RX --------- ------ Tetracycline <=1 S Doxycycline - Deduced S * Minocycline - Deduced S Trimethoprim/Sulfamethoxazole <=10 S Vancomycin 1 S Imipenem-Deduced S * Ampicillin/Sulbactam-Deduced S Cefazolin-Deduced S * These antibiotics are not available in the [facility] Formulary Contact the Microbiology Department for any additional antibiotic reporting. * ML - Main Lab . END OF REPORT DEPARTMENT OF PATHOLOGY, [address] [place] [address] Ras Baez M.D. Director [facility] # [id number] 23 SEE RESULT BELOW Name: KAVYA BYRD : [address]: Ron Davis DO Acct: [id number] Unit: [id number] AGE: 52 Location: [facility] Re11/07/17 SEX: M Status: DEP ER SPEC: [id number] ANGIE: 11/07/17-[address] [facility] [address]: Ron Davis DO REQ: [id number] RECD: 11/07/17 STATUS: RES OTHR DR: Destini Armenta PA _ SOURCE: NECK SPDESC: ORDERED: MRSA/SA SSTI, Culture Stain COMMENTS: [id number] Procedure Result Reported Site MRSA/S. aureus SSTI PCR PENDING Wound/Misc Gram Stain Preliminary 11/07/17- 0 ML 4+ Neutrophils 2+ Nucleated Cells 2+ Gram Positive Cocci Wound/Misc Culture PENDING * ML - Main Lab . END OF REPORT DEPARTMENT OF PATHOLOGY, [address] [place] [address] Ras Baez M.D. Director [facility] # [id number] 24 E03.9,E78.4,F50.9,R79.9 25 Elevated levels of HbA1c suggest the need for more aggressive treatment of glycemia. The [place] [employer] recommends that a primary goal [...] mg/dL * Source: National Cholesterol Education Program ([facility]) 49 QUERY: Reflex add FT3? Y QUERY: [...] for more aggressive treatment of glycemia. The [place] [employer] recommends that a primary goal of therapy should be a HbA1c of <7% and that physicians should re-evaluate the treatment regimen in patients with HbA1c values consistently >8%. 57 QUERY: Reflex add FT3? N QUERY: Reflex add FT4? Y 58 RUN DATE: 07/28/14 [facility] LAB LIVE PAGE 1 RUN TIME: [address] [place] [address] Specimen Inquiry Name: KAVYA BYRD : [address]: Brenton Lazcano MD Acct: [id number] Unit: [id number] AGE: 48 Location: [facility] Re07/19/14 SEX: M Status: DEP ER SPEC: [id number] ANGIE: 07/19/14-[address] [facility] [address]: Brenton Lazcano MD REQ: [id number] RECD: 07/19/14 STATUS: [facility] DR: Dwight [...] performed at Main Lab DEPARTMENT OF PATHOLOGY, [facility] [place], [place] [address] Ras Baez M.D. Director [facility] # [id number] RUN DATE: 07/28/14 [facility] LAB LIVE PAGE 2 RUN TIME: 1540 [facility] [place], [place] [address] Specimen Inquiry Patient: KAVYA BYRD [id number] (Continued) Specimen: [id number] Collected: 07/19/14-1624 Received: 07/19/14-1838 (Continued) Procedure Result Verified Site Wound/Misc Culture Final (continued) 07/28/14- 1540 1. STAPHYLOCOCCUS AUREUS (continued) M.I.C. RX --------- ------ Imipenem-Deduced S * Ampicillin/Sulbactam-Deduced S Cefazolin-Deduced S * These antibiotics are not available in the [facility] Formulary Contact the Microbiology Department for any additional antibiotic reporting. END OF REPORT * ML=Testing performed at Main Lab DEPARTMENT OF PATHOLOGY, [address] [place] [address] Ras Baez M.D. Director [facility] # [id number] 59 A1c value between 5.7% and 6.4% [...] D deficiency has been defined by the [place] of Medicine and an Endocrine Society practice guideline as a level of serum 25-OH vitamin D less than 20 ng/mL (1,2). The Endocrine Society went on to further define vitamin D insufficiency as a level between 21 and 29 ng/mL (2). 1. IOM ([place] of [employer]). 2010. Dietary reference intakes for calcium and D. [place]: The National Academies Press. 2. Cirilo JOHNSON, Hayder LAUREANO, Naif AJ, et al. Evaluation, treatment, and prevention of vitamin D deficiency: an Endocrine Society clinical practice guideline. JCEM. 2010; 96(7):1911-30. Performed at: RN - [facility] [address] [id number] Emergency Room Tech: Amber Jimenez MD, Phone: [phone] Note: Persistent reduction for 3 months [...] D deficiency has been defined by the [place] of [employer] and an Endocrine Society practice guideline as a level of serum 25-OH vitamin D less than 20 ng/mL (1,2). The Endocrine Society went on to further define vitamin D insufficiency as a level between 21 and 29 ng/mL (2). 1. IOM ([place] of [employer]). 2010. Dietary reference intakes for calcium and D. [place]: The National Academies Press. 2. Cirilo MF, Hayder [place], Naif AJ, et al. Evaluation, treatment, and prevention of vitamin D deficiency: an Endocrine Society clinical practice guideline. JCEM. 2010; 96(7):1911-30. Performed at: [facility] [address] [id number] Emergency Room Tech: Valentin Cardenas MD, Phone: [phone] Note: Persistent reduction for 3 months [...] patients with chronic HCV infection. Performed at: [facility] [address] [id number] Emergency Room Tech: Valentin Cardenas MD, Phone: [phone] QUERY: Add FT3 if TSH abnormal? FT3 QUERY: Add FT4 if TSH Abnormal? FT4 Y 76 Vitamin D deficiency has been defined by the [place] [employer] and an Endocrine Society practice guideline as a level of serum 25-OH vitamin D less than 20 ng/mL (1,2). The Endocrine Society went on to further define vitamin D insufficiency as a level between 21 and 29 ng/mL (2). 1. IOM ([place] [employer]). 2010. Dietary reference intakes for calcium and D. [place]: The National Academies Press. 2. Cirilo MF, Hayder LAUREANO, Naif AJ, et al. Evaluation, treatment, and prevention of vitamin D deficiency: an Endocrine Society clinical practice guideline. JCEM. 2010; 96(7):1911-30. Effective October 15, 2011, Vitamin D, 25 Hydroxy specimen requirements will change to serum only. Performed at: RN - [facility] [address] [id number] Emergency Room Tech: Valentin Cardenas MD, Phone: [phone] Note: Persistent reduction for 3 months [...] [email or web address]. Procedures Date Code Description Status 11/11/2018 82760071 Colonoscopy Completed 10/06/2012 97218 EKG Tracing & Interpretation Completed 10/09/2010 43795 Remove Impacted Cerumen Completed 10/02/2010 57639 Visual funct screen test, automated Completed 10/02/2010 26959 Pure Tone-Air Condition Only Completed 09/29/2009 93708 Screening Vision Test Completed 09/22/2008 07262 Screening Vision Test Completed 09/22/2008 69711 Pure Tone-Air Condition Only Completed 12/18/2007 38847 Remove Impacted Cerumen Completed Encounters Type Date Location Provider Dx Diagnosis Office Visit 01/21/[address] [facility] LILIAN Mesa J06.9 Acute upper 11:00a respiratory infection, unspecified H10.021 Other mucopurulent conjunctivitis, right eye H10.022 Other mucopurulent conjunctivitis, left eye H66.93 Otitis media, unspecified, bilateral Office Visit 10/17/2018 11:00a [facility] Primary Dwight Parker, Z00.01 Encounter for Care general adult medical exam w abnormal findings Z12.11 Encounter for screening for malignant neoplasm of colon Z12.5 Encounter for screening for malignant neoplasm of prostate E03.9 Hypothyroidism, unspecified E78.5 Hyperlipidemia, unspecified F41.9 Anxiety disorder, unspecified F70 Mild intellectual disabilities Office Visit 09/18/[address] [facility] Primary Dwight E03.9 Hypothyroidism, 10:45a Mao Parker MD unspecified E78.5 Hyperlipidemia, unspecified Z12.11 Encounter for screening for malignant neoplasm of colon Plan of Treatment Future Appointment(s):02/20/2019 9:15 am - LILIAN Mesa at [facility]04/2019 1:45 pm - Dwight Parker MD at [facility]
[2019-02-28 12:11] VITALS: BP 105/66
--- NOTE | 2019-02-28 12:37 | UC ---
Ear Complaint HPI - HPI Summary HPI Summary: 53 y/o male presents to the urgent care accompany by lay out worker from the [facility] c/o RT ear pain and yellowish drainage for the past 3 days. The [facility] staff noticed this morning the yellowish drainage. Pt states mild decrease hearing and ear pain is 4/10. He states about 1 months ago he had an ear infection in the same ear. Pt denies fever, URI, sinus congestion, dizziness, cough, SOB, chest pain, AJ, abdominal pain, N/V/D. - History of Current Complaint Chief Complaint: UCEar Stated Complaint: RIGHT EAR CONCERN Time Seen by Provider: 02/28/19 12:36 Hx Obtained From: Patient Onset/Duration: Gradual Onset - RT ear pain, Lasting Days - 3 days, Worse Since - today w/ yellowish drainage from Rt ear Severity Initially: Mild Severity Currently: Moderate Pain Intensity: 4 Pain Scale Used: 0-10 Numeric Aggravating Factors: Other - touch ear Alleviating Factors: Nothing Associated Signs/Symptoms: Positive: Hearing Loss - Allergies/Home Medications Allergies/Adverse Reactions: Allergies Allergy/AdvReac Type Severity Reaction Status Date / Time No Known Allergies Allergy Verified 02/28/19 12:11 PMH/Surg Hx/FS Hx/Imm Hx Previously Healthy: Yes Endocrine History: Hypothyroidism, Dyslipidemia Other Neurological History: Mild Intellectual dissability Psychological History: Anxiety, Depression - Surgical History Surgical History: None - Family History Known Family History: Positive: Unknown - Pt denies FMHX - Social History Occupation: Disabled Lives: [facility] Alcohol Use: None Substance Use Type: None Smoking Status (MU): Never Smoked Tobacco - Immunization History Vaccination Up to Date: Yes Review of Systems All Other Systems Reviewed And Are Negative: Yes Constitutional: Positive: Negative Skin: Positive: Negative Eyes: Positive: Negative ENT: Positive: Ear Ache - RT ear pain w/ yellowish drainage Respiratory: Positive: Negative Cardiovascular: Positive: Negative Gastrointestinal: Positive: Negative Genitourinary: Positive: Negative Motor: Positive: Negative Neurovascular: Positive: Negative Musculoskeletal: Positive: Negative Neurological: Positive: Negative Psychological: Positive: Negative Is Patient Immunocompromised?: No Physical Exam - Summary Physical Exam Summary: Vital signs: reviewed General: well developed, well nourished male sitting in the examining table w/o any apparent distress Skin: [place], warm and dry, no evidence of atopic dermatitis, psoriasis, seborrhea. HEENT: -Head: atraumatic, non tender; no scalp dermatitis. -Eyes: sclera and conjunctiva clear, PERRLA, EOMI -Ears: no pre- or postauricular lymphadenopathy or erythema; RT external ear canal with erythema and yellowish purulent discharge, pinna tenderness on palpation, Rt TM injected w/ erythema and yellowish drainage, no perforation. , LF external ear canal clear and LF TM WNL. TMs normal w/out bulging or retraction. Good light reflex. No fluid level, vesicles, or bullae. No perforation. -Nose/Face: erythematous and edematous nasal mucosa with clear rhinorrhea, no frontal or maxillary sinus tender to palpation. -Mouth/Throat: Mucous membrane moist, posterior pharynx clear, no erythema or exudates. Neck: supple, FROM, nontender, no lymphadenopathy, no meningismus. Chest: Clear to auscultation, normal breath sounds Abd: soft, Bowel sounds active, Nontender. Back: no spinal or CVAT Neuro: A&O x4, GCS 15, no focal neuro deficits, normal behavior for age. Triage Information Reviewed: Yes Vital Signs: Initial Vital Signs Temp 97.9 F 02/28/19 12:04 Pulse 68 02/28/19 12:04 Resp 17 02/28/19 12:04 BP 105/66 02/28/19 12:04 Pulse Ox 98 02/28/19 12:04 Ear Complaint Course/Dx - Course Course Of Treatment: 53 y/o male presents to the urgent care accompany by lay out worker from the [facility] c/o RT ear pain and yellowish drainage for the past 3 days. [facility] staff noticed this morning the yellowish drainage. Pt states mild decrease hearing and ear pain is 4/10. He states about 1 months ago he had an ear infection in the same ear. Pt denies fever, URI, sinus congestion, dizziness, cough, SOB, chest pain, AJ, abdominal pain, N/V/D. Hx obtained. Pt w/ RT ear titis externa and media on examination. Pt Rx Cortisporin otic drops adn Amoxicillin PO as directed below. lay out worker and Pt Advised to take ibuprofen PO OTC q6-8hrs prn for pain. If symptoms do not improve or worsen to advised to f/u with PCP for further management. D/C instructions explained. lay out worker and Pt understood and agreed with plan of care - Differential Dx/Diagnosis Differential Diagnosis/HQI/PQRI: Cerumen Impaction, Otitis Externa, Otitis Media , Perforated TM Provider Diagnosis: Right otitis media, Right otitis externa Discharge - Sign-Out/Discharge Documenting (check all that apply): Patient Departure - D/C home All imaging exams completed and their final reports reviewed: No Studies - Discharge Plan Condition: Stable Disposition: HOME Prescriptions: Amoxicillin PO (*) [Amoxicillin 875 MG (*)] 875 mg PO BID #20 tab Neomyc/Polym/HC 1% OTIC SUSP* [Cortisporin Otic Susp 1%*] 4 drop RIGHT EAR TID # 1 btl Patient Education Materials: Ear Infection (ED) Referrals: Destini Armenta PA [Primary Care Provider] - 2 Days Additional Instructions: 1- Please take the full course of the antibiotic to avoid resistance.Take yogurts w/ probiotics or Culturelle to protect your GI system 2- Apply Cortisporin otic drops as directed to alleviate ear pain. 2-Please take ibuprofen PO q6-8hrs prn as instructed after meals to alleviate pain and swelling. Increase fluid intake, eat well, rest and avoid strenuous exercise 3-If symptoms do not improve or worsen please return to the urgent care or f/u with your PCP for further evaluation and treatment. - Billing Disposition and Condition Condition: STABLE Disposition: Home
== END 2019-02-28 13:02 | disposition home or self-care (01) ==
LOC: UCCORT 11:49
DX: H66.91 Otitis media, unspecified, right ear (principal); H60.91 Unspecified otitis externa, right ear; F70 Mild intellectual disabilities
CPT/HCPCS: 99212; G0463